=== PATIENT | female | born 1955 | race Two or more races ===

== ENCOUNTER 2024-07-26 12:47 | Outpatient (AMB) | payer OTHER, MEDICAID, SELFPAY ==
--- NOTE | 2024-07-26 12:55 | A.OFFPC_ITS ---
Vital Signs 07/26/24 13:09 Height 5 ft 1.22 in Weight 141 lb BMI 26.4 BP 116/66 Blood Pressure Location Rt brachial Position Sitting Respiration 14 Pulse 96 Pulse Source Pulse Oximeter Pulse Oximetry (%) 96 Oxygen Delivery Method Room Air Intake Visit Reasons: [employer] Diabetes, High BP Intake Note: New patient visit Psych Sales Specialist Required: No Psych Sales Specialist Name: Psych Sales Specialist declined Allergies metformin Adverse Reaction (Verified 07/26/24 13:24) Diarrhea Medication List - Last Reconciled 07/26/24 by Lorna Correa PA-C atorvastatin 80 mg PO DAILY glyburide 5 mg PO BID lisinopril 20 mg PO BID pentoxifylline ER 400 mg PO BID sitagliptin phosphate (Januvia) 100 mg PO DAILY Tobacco use date assessed: 07/26/24 Fall risk assessment: No Falls in past year Last assessed Fall Risk: 07/26/24 Dental Screening Dental Screen Date: 07/26/24 Did you have a dental visit in the last 12 months?: Yes Did you have a dental problem in the last 6 months where you did not have access to dental care?: No Was dental information given to patient?: Patient has dentist HPI [employer] Diabetes, High BP HPI Details Patient is a 69-year-old female presenting today to establish care [place] [facility] She reports a significant past medical history of hypertension, hyperlipidemia type 2 diabetes, pvd, varicose veins. Daughter helps with translation Endo: Last A1c was approximately 11. dx with dm approximately 8-10 years ago around age 60. Currently on glyburide 5 mg bid and januvia 100 mg daily. She does not always check blood sugars. No recent low blood sugars. Last known glucose was 200ish. -stopped metformin due to GI issues. CV: Blood pressure today in the office is on 116/66. SHe is on lisinopril 20 mg bid, pentoxifylline 400 mg bid. compliant with atorvastatin 80 mg nightly. Vasc: followed with Dr. Ramírez Figueroa in Apr for varicose veins. Wears compression stockings regularly but states that sometimes her feet feel a little puffy. It is pretty much in the left foot and gets better when she elevates or lays down. They told her this is related to her varicose veins. Mammo: At [facility] booked next week Pap: UTD 2022, scheduled for November 2024 Bone density: believes due this year and states maybe has osteopenia Colonoscopy: never had, would do cologuard [facility] Surgical History (Updated 07/26/24 @ 13:22 by Paige Harley CMA) Hx of appendectomy Status post phlebectomy Family History (Updated 07/26/24 @ 13:22 by Paige Harley CMA) Father Diabetes Sister Diabetes Breast cancer Brother Diabetes Sister Breast cancer Lung cancer Family/Other Cancer Social History Housing: Apartment Alcohol intake: current Patient Tobacco Use Status: Never used Tobacco e-Cigarette/Vaping Use: Never Used Second Hand Smoke Exposure: No service: No Current occupational status: unemployed Cognitive needs: No Hearing needs: No Vision needs: Yes (glasses) Questionnaire AUDIT C Alcohol Use Questionnaire (AUDIT-C) 1. How often do you have a drink containing alcohol?: Monthly or less (Once year, glass of wine, on holidays) 2. How many drinks containing alcohol do you have on a typical day when you are drinking?: 1 or 2 3. How often do you have six or more drinks on one occasion?: Never Total Score: 1 Physical exam (Primary Care) Const Orientation/consciousness: patient oriented x3 HENMT Ears: hearing grossly normal bilaterally Neck Thyroid: Thyroid normal Lymphatic: no lymphadenopathy noted Resp Auscultation: clear to auscultation bilaterally Cardio Rate: regular rate Rhythm: regular rhythm Heart sounds: S1 normal heart sound present and S2 normal heart sound present GI Inspection: Yes normal to inspection Palpation (GI): Soft to palpation and Other GI palpation findings present (nontender, no cva tenderness) Auscultation: normoactive bowel sounds Rectal Exam - Female: deferred Skin General skin exam: no rashes or lesions noted Neuro General: patient oriented x3, gait normal and no focal motor deficits Coding Level of Care Code New Pt Level 4 (56096) Complex EM visit Add On G2211 Diagnoses Uncontrolled type 2 diabetes mellitus with hyperglycemia E11.65 HTN (hypertension) I10 Hyperlipidemia E78.5 Varicose veins of both lower extremities I83.93 Assessment & Plan Assessment & Plan (1) Uncontrolled type 2 diabetes mellitus with hyperglycemia: Code(s): E11.65 - Type 2 diabetes mellitus with hyperglycemia Category: Medical Plan: Labs ordered today. We did discuss going for diabetic Education but she wants to wait on this. We did review type 1 and type 2 diabetes, pathophysiology of diabetes, com plications associated with poorly controlled diabetes such as kidney disease, infections, amputation risks, [place], CVA etc.. We will follow up in a week to be reassessed. We did discuss possibly switching her medications so GLP 1. (2) HTN (hypertension): Code(s): I10 - Essential (primary) hypertension Category: Medical Plan: WNL. Continue with the lisinopril. (3) Hyperlipidemia: Code(s): E78.5 - Hyperlipidemia, unspecified Category: Medical Plan: lipids and lfts ordered (4) Varicose veins of both lower extremities: Code(s): I83.93 - Asymptomatic varicose veins of bilateral lower extremities Category: Medical Plan: compliant with compression stockings. will get notes from [facility] regarding procedures that were done and the rx pentoxifylline as she denies any issues with circulation. She thinks Dr. Rae was prescribing this and will get records [place] [facility] release filled out today. Orders: Orders C Peptide Today E11.65 - Type 2 diabetes mellitus with hyperglycemia, E78.5 - Hyperlipidemia, unspecified, I10 - Essential (primary) hypertension Hemoglobin A1c Today E11.65 - Type 2 diabetes mellitus with hyperglycemia, E78.5 - Hyperlipidemia, unspecified, I10 - Essential (primary) hypertension B Type Natriuretic Peptide Today E11.65 - Type 2 diabetes mellitus with hyperglycemia, E78.5 - Hyperlipidemia, unspecified, I10 - Essential (primary) hypertension Islet Cell Antibody Scrn/Titer Today E11.65 - Type 2 diabetes mellitus with hyperglycemia, E78.5 - Hyperlipidemia, unspecified, I10 - Essential (primary) hypertension Glutamic acid decarboxylase Ab Today E11.65 - Type 2 diabetes mellitus with hyperglycemia, E78.5 - Hyperlipidemia, unspecified, I10 - Essential (primary) hypertension Comprehensive [place]. Panel Fast Today E11.65 - Type 2 diabetes mellitus with hyperglycemia, E78.5 - Hyperlipidemia, unspecified, I10 - Essential (primary) hypertension Microalbumin, Random (w Creat) Today E11.65 - Type 2 diabetes mellitus with hyperglycemia, E78.5 - Hyperlipidemia, unspecified, I10 - Essential (primary) hypertension Lipid Panel Today E11.65 - Type 2 diabetes mellitus with hyperglycemia, E78.5 - Hyperlipidemia, unspecified, I10 - Essential (primary) hypertension XR DEXA axial skeleton Today M85.80 - Other specified disorders of bone density and structure, unspecified site Referrals Cologuard Test Z12.11 - Encounter for screening for malignant neoplasm of colon Medications: New hydrochlorothiazide 25 mg PO DAILY 90 tabs 0RF
[2024-07-26 13:09] VITALS: BP 116/66; PULSE 96; RESP 14; O2SAT 96; BMI 26.4
== END 2024-07-26 13:41 | disposition home or self-care (01) ==
LOC: HO.HMCFM 12:48
PROVIDERS: PCP Physician Assistant; Visit Provider Physician Assistant
DX: E11.65 Type 2 diabetes mellitus with hyperglycemia (principal); I10 Essential (primary) hypertension; E78.5 Hyperlipidemia, unspecified; I83.93 Asymptomatic varicose veins of bilateral lower extremities

== ENCOUNTER → 2024-07-26 12:47 | Outpatient (BNVA) | payer OTHER, SELFPAY | PROVIDERS: PCP Physician Assistant; Visit Provider Physician Assistant | DX: E11.65 Type 2 diabetes mellitus with hyperglycemia (principal); E78.5 Hyperlipidemia, unspecified; I10 Essential (primary) hypertension; I83.93 Asymptomatic varicose veins of bilateral lower extremities | CPT/HCPCS: 99202 ==

== ENCOUNTER 2024-07-31 07:49 | Outpatient (REF) | payer OTHER, SELFPAY ==
[2024-07-31 11:34] LABS: B Type Natriuretic Peptide < 10 pg/mL (<100)
[2024-07-31 11:38] LABS: Estimated Average Glucose 280 mg/dL; Hemoglobin A1C 371.4241 umol/L; Hemoglobin A1c % 11.4 % (<6.0); Total Hemoglobin (HGBA1C) 3676.1278 umol/L
[2024-07-31 11:43] LABS: Creatinine Urine 117.39 mg/dL; Microalbum/Creatinine Ratio Ur 12.7 ug/mg cr (<30)
[2024-07-31 12:58] LABS: Alanine Aminotransferase 42 U/L (0-31); Albumin Level 4.6 g/dL (3.5-5.0); Anion Gap 15 (12-20); Aspartate Amino Transferase 28 U/L (5-31); Bilirubin Total 0.6 mg/dL (0.0-1.0); Blood Urea Nitrogen 14 mg/dL (9-16); Calcium 10.4 mg/dL (8.4-10.2); Carbon Dioxide 27 mmol/L (22-29); Chloride 102 mmol/L (96-108); Cholesterol 204 mg/dL (<200); Estimated Glomerular Filt Rate > 60; Glucose Fasting 284 mg/dL (60-99); HDL Cholesterol 57 mg/dL (>40); LDL Cholesterol Calculated 127 mg/dL (<100); Sodium 140 mmol/L (135-145); Total Protein 7.7 g/dL (6.5-8.0); Triglycerides 100 mg/dL (<150)
[2024-07-31 13:13] LABS: Alkaline Phosphatase 108 U/L (39-117)
[2024-08-01 04:18] LABS: C Peptide 2.27 ng/mL (0.80-3.85)
[2024-08-03 21:43] LABS: Glutamic acid decarboxylase Ab <5 IU/mL (<5)
[2024-08-07 22:49] LABS: Islet Cell Antibody Screen NEGATIVE (NEGATIVE)
== END 2024-07-31 07:50 | disposition home or self-care (01) ==
LOC: HO.WFDLDS 07:49
PROVIDERS: Visit Provider Physician Assistant
DX: E78.5 Hyperlipidemia, unspecified (principal); I10 Essential (primary) hypertension; E11.65 Type 2 diabetes mellitus with hyperglycemia
CPT/HCPCS: 36415; 80053; 80061; 82043; 82570; 83036; 83880; 84681; 86341

== ENCOUNTER 2024-08-02 11:18 | Outpatient (AMB) | payer OTHER, SELFPAY ==
--- NOTE | 2024-08-02 11:33 | MHC.PC.OV ---
Vital Signs 08/02/24 11:37 Height 5 ft 1.22 in BP 128/72 Blood Pressure Location Rt brachial Position Sitting Respiration 12 Pulse 94 Pulse Source Pulse Oximeter Pulse Oximetry (%) 97 Oxygen Delivery Method Room Air Intake Visit Reasons: meds and bp check Intake Note: Follow up medication and blood pressure Allergies metformin Adverse Reaction (Verified 08/02/24 11:36) Diarrhea Medication List - Last Reconciled 08/02/24 by Lorna Correa PA-C atorvastatin 80 mg PO DAILY hydrochlorothiazide 25 mg PO DAILY lisinopril 20 mg PO BID pentoxifylline ER 400 mg PO BID Tobacco use date assessed: 08/02/24 Dental Screening Dental Screen Date: 07/26/24 HPI meds and bp check HPI Details Patient is a 69-year-old female presenting today to [facility] care transferring from [facility]. She reports a significant past medical history of hypertension, hyperlipidemia type 2 diabetes, pvd, varicose veins. Daughter helps with translation Endo: Her A1c from the other day was 11.4. C-peptide WNL. Antibodies pending. dx with dm approximately 8-10 years ago around age 60. Currently on glyburide 5 mg bid and januvia 100 mg daily. She does not always check blood sugars. No recent low blood sugars. Last known glucose was 200ish. -stopped metformin due to GI issues. She says that she does not tolerate any dosage of the metformin. CV: Blood pressure today in the office is on is 128/72. She is on lisinopril 20 mg bid, hydrochlorothiazide 25 mg daily, pentoxifylline 400 mg bid. compliant with atorvastatin 80 mg nightly. No chest pain, shortness on breath or dizziness. Vasc: followed with Dr. Ramírez Figueroa in Apr for varicose veins. Wears compression stockings regularly but states that sometimes her feet feel a little puffy. It is pretty much in the left foot and gets better when she elevates or lays down. They told her this is related to her varicose veins. Mammo: Completed at [facility] 07/2024 and states normal Pap: UTD 2022, scheduled for November 2024 Bone density: believes due this year and states maybe has osteopenia Colonoscopy: never had, would do cologuard-ordered at last visit [facility] Surgical History Hx of appendectomy Status post phlebectomy Family History Father Diabetes Sister Diabetes Breast cancer Brother Diabetes Sister Breast cancer Lung cancer Family/Other Cancer Social History (Updated 08/02/24 @ 11:50 by Paige Harley CMA) Housing: Apartment Alcohol intake: current Patient Tobacco Use Status: Never used Tobacco e-Cigarette/Vaping Use: Never Used Second Hand Smoke Exposure: No service: No Current occupational status: unemployed Cognitive needs: No Hearing needs: No Vision needs: Yes (glasses) Physical exam (Primary Care) Vital Signs: Last Vital Signs Pulse 94 08/02/24 11:37 Resp 12 08/02/24 11:37 BP 128/72 08/02/24 11:37 Pulse Ox 97 08/02/24 11:37 Oxygen Delivery Method Room Air 08/02/24 11:37 Tobacco/Smoking Status: Tobacco use Status Tobacco use date assessed 08/02/24 08/02/24 11:37 Patient Tobacco Use Status Never used Tobacco 08/02/24 11:50 e-Cigarette/Vaping Use Never Used 08/02/24 11:50 Const Orientation/consciousness: patient oriented x3 HENMT Ears: hearing grossly normal bilaterally Neck Thyroid: Thyroid normal Lymphatic: no lymphadenopathy noted Resp Auscultation: clear to auscultation bilaterally Cardio Rate: regular rate Rhythm: regular rhythm Heart sounds: S1 normal heart sound present and S2 normal heart sound present GI Inspection: Yes normal to inspection Palpation (GI): Soft to palpation and Other GI palpation findings present (nontender, no cva tenderness) Auscultation: normoactive bowel sounds Rectal Exam - Female: deferred Skin General skin exam: no rashes or lesions noted Neuro General: patient oriented x3, gait normal and no focal motor deficits Results Reviewed Results Reviewed: Laboratory Tests 07/31/24 07:51 Sodium 140 Potassium 4.0 Chloride 102 Carbon Dioxide 27 Anion Gap 15 BUN 14 Creatinine 0.85 Estimated GFR > 60 Fasting Glucose 284 H Hemoglobin A1c % 11.4 H C-Peptide 2.27 Calcium 10.4 H AST 28 ALT 42 H Alkaline Phosphatase 108 B-Natriuretic Peptide < 10 Coding Level of Care Code Est Pt Level 5 (16813) Complex EM visit Add On G2211 Diagnoses Uncontrolled type 2 diabetes mellitus with hyperglycemia E11.65 Elevated LFTs R79.89 Hyperlipidemia E78.5 Assessment & Plan Assessment & Plan (1) Uncontrolled type 2 diabetes mellitus with hyperglycemia: Code(s): E11.65 - Type 2 diabetes mellitus with hyperglycemia Category: Medical Plan: We reviewed how poorly the diabetes is controlled. Spent approximately 65 minutes in [id number] time today reviewing diabetes, the pathophysiology of diabetes, the differences between type 1 and type 2 and the complications associated with poorly controlled type 2 diabetes including but not limited to increased risk of blindness, amputations, dialysis, CA, CVA etc.. She refuses to wear a CGM at this point. I have referred her to the endocrine department so she may have more Education and see a CGM and hopefully have better control of diabetes. Insurance prefers glipizide. We will switch from glyburide to glipizide. I will discontinue Januvia After a very long discussion she is open to starting Lantus. We will start with 10 units. She will start Trulicity this weekend. We reviewed risks, benefits and adverse effects of this medication. We reviewed signs and symptoms of hyper and hypoglycemia and how to treat this. Advised short term follow up in a few weeks to be reassessed. (2) Elevated LFTs: Code(s): R79.89 - Other specified abnormal findings of blood chemistry Category: Medical Plan: Discussed the importance of managing diabetes Ultrasound ordered. We will monitor labs. (3) Hyperlipidemia: Code(s): E78.5 - Hyperlipidemia, unspecified Category: Medical Plan: Discussed that her LDL is not quite at goal. She is going to work on making some lifestyle modifications. Orders: Orders Parathyroid Hormone Intact 08/02/24 E78.5 - Hyperlipidemia, unspecified, R79.89 - Other specified abnormal findings of blood chemistry Vitamin D 25-OH Total 08/02/24 E78.5 - Hyperlipidemia, unspecified, R79.89 - Other specified abnormal findings of blood chemistry Calcium, Ionized 08/02/24 E78.5 - Hyperlipidemia, unspecified, E83.52 - Hypercalcemia, R79.89 - Other specified abnormal findings of blood chemistry US abdomen comp w elastography 08/02/24 R79.89 - Other specified abnormal findings of blood chemistry Liver Panel 08/02/24 E78.5 - Hyperlipidemia, unspecified, R79.89 - Other specified abnormal findings of blood chemistry Basic Metabolic Panel 08/02/24 E78.5 - Hyperlipidemia, unspecified, R79.89 - Other specified abnormal findings of blood chemistry Referrals Endocrinology Referral E11.65 - Type 2 diabetes mellitus with hyperglycemia Medications: New dulaglutide (Trulicity) 0.75 mg (0.5 mL) subcut QWEEK 2 mL 3RF pen needle, diabetic Use BID As directed 100 ea 3RF pentoxifylline ER must administer with a meal/food 400 mg PO BID 180 tabs 1RF glipizide 5 mg PO BID 180 tabs 0RF insulin glargine (Lantus Solostar U-100 Insulin) 10 units (0.1 mL) subcut QPM 15 mL 3RF Patient Instructions: stop glyburide start glipizide 5 mg twice a day stop januvia start trulicity 0.75 mg once a week injection start lantus (insulin) tonight or tomorrow complete labs before our next appointment short term follow up
[2024-08-02 11:37] VITALS: BP 128/72; PULSE 94; RESP 12; O2SAT 97
== END 2024-08-02 12:38 | disposition home or self-care (01) ==
LOC: HO.HMCFM 11:18
PROVIDERS: PCP Physician Assistant; Visit Provider Physician Assistant
DX: E11.65 Type 2 diabetes mellitus with hyperglycemia (principal); R79.89 Other specified abnormal findings of blood chemistry; E78.5 Hyperlipidemia, unspecified

== ENCOUNTER → 2024-08-02 11:18 | Outpatient (BNVA) | payer OTHER, SELFPAY | PROVIDERS: PCP Physician Assistant; Visit Provider Physician Assistant | DX: I10 Essential (primary) hypertension (principal); E78.5 Hyperlipidemia, unspecified; E11.51 Type 2 diabetes mellitus with diabetic peripheral angiopathy without gangrene; E11.65 Type 2 diabetes mellitus with hyperglycemia; I83.90 Asymptomatic varicose veins of unspecified lower extremity; R79.89 Other specified abnormal findings of blood chemistry | CPT/HCPCS: 99212 ==

== ENCOUNTER → 2024-08-16 08:45 | Outpatient (BNVA) | payer OTHER, SELFPAY | PROVIDERS: PCP Physician Assistant; Visit Provider Physician Assistant | DX: Z13.89 Encounter for screening for other disorder (principal) ==

== ENCOUNTER 2024-08-29 07:44 | Outpatient (REF) | payer OTHER, SELFPAY ==
--- OUTSIDE RECORDS SUMMARY | 2024-08-29 07:46 | XMS_ITS | Continuity of Care Document ---
Author Organization [facility] Address [address] [place] [address] Phone Care Team Providers Care Group Controller Name Role Phone Henry RIZZO, MITCH, LINDSAY, [...] Established 15 Mins Apr Duplex Scan-extrem Veins; [facility]/ Advance Directives Directive Yes / No Effective [...] Mins- [place] & [place] [facility], [address] [place] [address] Dr Lozoya [address] [place], [place] [address], [id number], [place] tel:[phone] [facility] Type 2 diabetes mellitus without complicationsE ssential (primary) hypertensionVe nous insufficiency (chronic) (peripheral)Di sorder of pigmentation, unspecified 5 Henry RIZZO, MITCH, LINDSAY Elmore. [address] [place] [address], [id number] , [place]. tel:[phone] Referring Provider: Macy Rae MD, [address] [place] [address], [address]. tel:[phone] [place] [facility], [address] [place] [address] Dr Lozoya [address] [place] [address], [id number], [place] tel:[phone] [facility] Chronic venous hypertension (idiopathic) with other complications of left lower extremity 5 Henry RIZZO RVT, LINDSAY Elmore. [address] [place] [address], [place], [place], [id number] , [place]. tel:[phone] Referring Provider: Macy Rae MD, [address] [place] [address], [address]. tel:[phone] [facility], [address] [place] [address] Dr Lozoya [address] [place], [id number], [place] tel:[phone] [facility] Encounter for follow-up examination after completed treatment for conditions other than malignant neoplasmChroni c venous hypertension (idiopathic) with other complications of left lower extremity 5 Henry RIZZO RVT, LINDSAY Elmore. [address] [place] [address], [place], [place], [id number] , [place]. tel:[phone] Referring Provider: Macy Rae MD, [address] [place] [address], [address]. tel:[phone] [place] [facility], [address] [place] [address] Dr Lozoya [address] l[place], [id number], [place] tel:[phone] [facility] Varicose veins of left lower extremity with other complications 5 Maame Mosquera . [address] [place] [address], [place], [place], [id number] , [place]. tel:[phone] Referring Provider: Macy Rae MD, [address] [place] [address], [address]. tel:[phone] Office/Outpt E&M Established 15 Mins- CT & [facility], [address] [place] [address] Dr Lozoya [address] l[place], [id number], [place] tel:[phone] [facility] Hereditary lymphedemaType 2 diabetes mellitus without complicationsE ssential (primary) hypertensionLo calized edemaVaricose veins of left lower extremity with painLymphedema , not elsewhere classified 4 Henry RIZZO RVT, LINDSAY Elmore. [address] [place] [address], [place], [place], [id number] , [place]. tel:[phone] Referring Provider: Macy Rae MD, [address] [place] [address], [address]. tel:[phone] [place] [facility], [address] [place] [address] Dr [address], [id number], [place] tel:[phone] [facility] Chronic venous hypertension (idiopathic) with other complications of left lower extremity 4 Henry RIZZO, RVT, LINDSAY Elmore. [address] [place] [address], [place], [place], [id number] , [place]. tel:[phone] Referring Provider: Macy Rae MD, [address] [place] [address], [address]. tel:[phone] Office/Outpt E&M Established 15 Mins [facility], [address] [place] [address] Dr Lozoya [address] [address], [id number], [place] tel:[phone] [facility] Chronic venous htn w oth comp of bilateral low extrm 3 Tarik RIZZO FACS RVT LINDSAY Saldivar. [address] [place] [address], [place], [address], [place]. tel:[phone] Referring Provider: Macy Rae MD, [address] [place] [address], [address]. tel:[phone] [facility], [address] [place] [address] Dr Lozoya [address] [address], [id number], [place] tel:[phone] [facility] Encntr for f/u exam aft trtmt for cond oth than malig neoplmChronic venous hypertension w oth comp of l low extrem 3 Tarik RIZZO FACS RVT LINDSAY Saldivar. [address] [place] [address], [place], [address], [place]. tel:[phone] Referring Provider: Macy Rae MD, [address] [place] [address], [address]. tel:[phone] [facility], [address] [place] [address] Dr Lozoya [address], [id number], [place] tel:[phone] [facility] Spider Veins - (Telangiectasi a) 3 Maame Mosquera . [address] [place] [address], [facility], [place], [id number] , [place]. tel:[phone] Referring Provider: Macy Rae MD, [address] [place] [address], [address]. tel:[phone] [facility], [address] [place] [address] Dr Lozoya [address] [place], [id number], [place] tel:[phone] [facility] Varicose veins of left lower extremities w ot complications Sep- 3 Tarik RIZZO FACS T RPVI K Yariel. [address] [place] [address], [place], [address], [place]. tel:[phone] Referring Provider: Macy Rae MD, [address] [place] [address], [address]. tel:[phone] [place] [facility], [address] [place] [address] Dr Lozoya [address] [place], [id number], [place] tel:[phone] [facility] Varicose veins of left lower extremities w ot complications 3 Tarik RIZZO FACS T RPVI K Yariel. [address] [place] [address], [place], [address], [place]. tel:[phone] Referring Provider: Macy Rae MD, [address] [place] [address], [address]. tel:[phone] [place] [facility], [address] [place] [address] Dr Lozoya [address], [id number], [place] tel:[phone] [facility] No Information 3 Tarik RIZZO FACS RVT RPVI K Yariel. [address] [place] [address], [place], [address], [place]. tel:[phone] Referring Provider: Macy Rae MD, [address] [place] [address], [address]. tel:[phone] Offic/outpt E&m Estab 5 Min Trial - [facility], [address] [place] [address] Dr Lozoya [address], [id number], [place] tel:[phone] [facility] [place] Venous insufficiency (chronic) (peripheral) 3 Tarik Saldiavr. [address] [place] [address], [place], [address], . tel:[phone] Referring Provider: Macy Rae MD, [address] [place] [address], [address]. tel:[phone] Office/Outpt E&M Established 15 Mins [facility], [address] [place] [address] Dr Lozoya [address], [place], [id number], tel:[phone] [facility] [place] [facility] [place] Body mass index (BMI) 25.0-25.9, adultVenous insufficiency (chronic) (peripheral) 3 Tarik Saldivar. [address] [place] [address], [place], [address], [place]. tel:[phone] Referring Provider: Macy Rae MD, [address] [place] [address], [address]. tel:[phone] [place] [facility], [address] [place] [address] [facility] [address], [id number], [place] tel:[phone] [facility] [place] Venous insufficiency (chronic) (peripheral) 3 Tarik Saldivar. [address] [place] [address], [place], [address], [place]. tel:[phone] Referring Provider: Macy Rae MD, [address] [place] [address], [address]. tel:[phone] Family History Family Member Type Diagnosis Age At Onset No Information Payers Payer name Insurance type Covered alliance party ID Husam russell(s) [facility] CI [id number] Social History Type Description Quantity Date Captured [...] No Information Instructions Date Instruction Additional Infor mation Pre and post instruc tions reviewed and provided Related to Venous insufficiency (chronic) (peripheral) Lifestyle education Related to B chata mass index (BMI) 26.0-26.9, adult Giving Encouragement to exercise Related to Body mass index (BMI) 26.0-26.9, adult Diet education Related to Body mass index (BMI) 26.0-26.9, adult Pre and post instruc tions reviewed and provided Related to Localized edema Lifestyle education Related to B chata mass index (BMI) 26.0-26.9, adult Giving Encouragement to exercise Related to Body mass index (BMI) 26.0-26.9, adult Diet education Related to Body mass index (BMI) 26.0-26.9, adult Dietary management e ducation, guidance, and counseling Related to Body mass index [BMI] 25.0-25.9, adult Assessments Type Assessment Date No Information Patient Care Teams Name Effective Dates (start - stop) Status Members No Information
[2024-08-29 12:06] LABS: Parathyroid Hormone Intact 57.5 pg/mL (8.7-77.1)
[2024-08-29 14:46] LABS: Alanine Aminotransferase 66 U/L (0-31); Albumin Level 4.5 g/dL (3.5-5.0); Anion Gap 12 (12-20); Aspartate Amino Transferase 39 U/L (5-31); Bilirubin Direct 0.1 mg/dL (0.0-0.5); Bilirubin Total 0.4 mg/dL (0.0-1.0); Blood Urea Nitrogen 11 mg/dL (9-16); Carbon Dioxide 29 mmol/L (22-29); Chloride 107 mmol/L (96-108); Estimated Glomerular Filt Rate > 60; Glucose Random 129 mg/dL (60-115); Potassium 4.4 mmol/L (3.3-5.1); Sodium 144 mmol/L (135-145); Total Protein 7.4 g/dL (6.5-8.0)
[2024-08-29 15:24] LABS: Vitamin D 25-OH Total 121.7 ng/mL (>30)
[2024-08-29 18:21] LABS: Alkaline Phosphatase 83 U/L (39-117)
[2024-08-30 15:18] LABS: Calcium, Ionized 5.5 mg/dL (4.7-5.5)
== END 2024-08-29 07:45 | disposition home or self-care (01) ==
LOC: HO.WFDLDS 07:44
PROVIDERS: Visit Provider Physician Assistant
DX: E78.5 Hyperlipidemia, unspecified (principal); E83.52 Hypercalcemia; R79.89 Other specified abnormal findings of blood chemistry
CPT/HCPCS: 36415; 80048; 80076; 82306; 82330; 83970

== ENCOUNTER 2024-08-31 13:33 | Outpatient (AMB) | payer OTHER, SELFPAY ==
--- NOTE | 2024-08-31 13:39 | A.OFFPC_ITS ---
Vital Signs 08/31/24 13:44 Height 5 ft 1.22 in Weight 139 lb 4 oz BMI 26.1 BP 110/60 Blood Pressure Location Rt brachial Position Sitting Respiration 12 Pulse 80 Pulse Source Pulse Oximeter Pulse Oximetry (%) 94 Oxygen Delivery Method Room Air Intake Visit Reasons: dm and labs Intake Note: Diabetes follow up, lab results. Need OneTouch Ultra test strips and Trulicity refilled. Build And Deployment Engineer Required: No Build And Deployment Engineer Name: mosaicist declined Accompanied by: Daughter Allergies metformin Adverse Reaction (Verified 08/31/24 13:49) Diarrhea Medication List - Last Reconciled 08/31/24 by Lorna Correa PA-C atorvastatin 80 mg PO DAILY blood sugar diagnostic (OneTouch Ultra Test strips) As directed dulaglutide (Trulicity) 0.75 mg (0.5 mL) subcut QWEEK glipizide 5 mg PO BID hydrochlorothiazide 25 mg PO DAILY insulin glargine (Lantus Solostar U-100 Insulin) 10 units (0.1 mL) subcut QPM lisinopril 20 mg PO BID pen needle, diabetic Use BID As directed pentoxifylline ER 400 mg PO BID Tobacco use date assessed: 08/31/24 Fall risk assessment: No Falls in past year Last assessed Fall Risk: 08/31/24 Dental Screening Dental Screen Date: 07/26/24 HPI dm and labs HPI Details Patient is a 69-year-old female presenting today for a follow up. She reports a significant past medical history of hypertension, hyperlipidemia type 2 diabetes, pvd, varicose veins. Daughter helps with translation Endo: Her A1c from the other day was 11.4. C-peptide WNL. Antibodies neg. dx with dm approximately 8-10 years ago around age 60. Currently on glyburide 5 mg bid and at last visit started on Trulicity 0.75 mg weekly and 10 units of Lantus daily. She states her blood sugars recently have been very normal around 90-100. On days where the blood sugars were on 90 she would hold off on the insulin. Denies any hypoglycemic events. -stopped metformin due to GI issues. Sh umm says that she does not tolerate any do emmett of the metformin. CV: Blood pressure today in the office is on is 128/72. She is on lisinopril 20 mg bid, hydrochlorothiazide 25 mg daily, pentoxifylline 400 mg bid. compliant with atorvastatin 80 mg nightly. No chest pain, shortness on breath or dizziness. Vasc: followed with Dr. Ramírez Figueroa in Apr for varicose veins. Wears compression stockings regularly. Mammo: Completed at [facility] 07/2024 and states normal Pap: UTD 2022, scheduled for November 2024 Bone density: believes due this year and states maybe has osteopenia-this was ordered Colonoscopy: never had, would do cologuard-ordered at last visit [facility] Surgical History Hx of appendectomy Status post phlebectomy Family History Father Diabetes Sister Diabetes Breast cancer Brother Diabetes Sister Breast cancer Lung cancer Family/Other Cancer Social History (Updated 08/02/24 @ 11:50 by Paige Harley CMA) Housing: Apartment Alcohol intake: current Patient Tobacco Use Status: Never used Tobacco e-Cigarette/Vaping Use: Never Used Second Hand Smoke Exposure: No service: No Current occupational status: unemployed Cognitive needs: No Hearing needs: No Vision needs: Yes (glasses) Physical exam (Primary Care) Vital Signs: Last Vital Signs Pulse 80 08/31/24 13:44 Resp 12 08/31/24 13:44 BP 110/60 08/31/24 13:44 Pulse Ox 94 08/31/24 13:44 Oxygen Delivery Method Room Air 08/31/24 13:44 BMI result Body Mass Index 26.1 Tobacco/Smoking Status: Tobacco use Status Tobacco use date assessed 08/31/24 08/31/24 13:43 Patient Tobacco Use Status Never used Tobacco 08/31/24 13:39 e-Cigarette/Vaping Use Never Used 08/31/24 13:39 Const Orientation/consciousness: patient oriented x3 HENMT Ears: hearing grossly normal bilaterally Neck Thyroid: Thyroid normal Lymphatic: no lymphadenopathy noted Resp Auscultation: clear to auscultation bilaterally Cardio Rate: regular rate Rhythm: regular rhythm Heart sounds: S1 normal heart sound present and S2 normal heart sound present GI Inspection: Yes normal to inspection Palpation (GI): Soft to palpation and Other GI palpation findings present (nontender, no cva tenderness) Auscultation: normoactive bowel sounds Rectal Exam - Female: deferred Skin General skin exam: no rashes or lesions noted Neuro General: patient oriented x3, gait normal and no focal motor deficits Coding Level of Care Code Est Pt Level 4 (29894) Complex EM visit Add On G2211 Diagnoses Uncontrolled type 2 diabetes mellitus with hyperglycemia E11.65 Hyperlipidemia E78.5 Elevated LFTs R7. Assessment & Plan Assessment & Plan (1) Uncontrolled type 2 diabetes mellitus with hyperglycemia: Code(s): E11.65 - Type 2 diabetes mellitus with hyperglycemia Category: Medical Plan: stop insulin increase trulicity to 1.5 mg weekly reduce glipizide to 5 mg daily (2) Hyperlipidemia: Code(s): E78.5 - Hyperlipidemia, unspecified Category: Medical Plan: continue statin will monitor lfts u/s ordered (3) Elevated LFTs: Code(s): R79. - Other specified abnormal findings of blood chemistry Category: Medical Plan: labs ordered u/s pending does not use tylenol or drink etoh has been on atorvastatin for at least 5 years Orders: Orders Hepatitis A IgG Today E11.65 - Type 2 diabetes mellitus with hyperglycemia, E78.5 - Hyperlipidemia, unspecified, R94.5 - Abnormal results of liver function studies Gamma Glutamyl Transpeptidase Today E11.65 - Type 2 diabetes mellitus with hyperglycemia, E78.5 - Hyperlipidemia, unspecified, R94.5 - Abnormal results of liver function studies Ferritin Today E11.65 - Type 2 diabetes mellitus with hyperglycemia, E78.5 - Hyperlipidemia, unspecified, R94.5 - Abnormal results of liver function studies IRON PROFILE Today E11.65 - Type 2 diabetes mellitus with hyperglycemia, E78.5 - Hyperlipidemia, unspecified, R94.5 - Abnormal results of liver function studies Liver Panel Today E11.65 - Type 2 diabetes mellitus with hyperglycemia, E78.5 - Hyperlipidemia, unspecified, R94.5 - Abnormal results of liver function studies Hepatitis A IgM Today E11.65 - Type 2 diabetes mellitus with hyperglycemia, E78.5 - Hyperlipidemia, unspecified, R94.5 - Abnormal results of liver function studies Hepatitis C Antibody Today E11.65 - Type 2 diabetes mellitus with hyperglycemia , E78.5 - Hyperlipidemia, unspecified, R94.5 - Abnormal results of liver function studies, Z20.2 - Contact with and (suspected) exposure to infections with a predominantly sexual mode of transmission Complete Blood Count Auto Diff Today R79.89 - Other specified abnormal findings of blood chemistry Medications: New dulaglutide (Trulicity) 1.5 mg (0.5 mL) subcut QWEEK 2 mL 3RF glipizide ER 5 mg PO DAILY 90 tabs 1RF Discontinued dulaglutide (Trulicity) Discontinued Reason: Doctor's Order 0.75 mg (0.5 mL) subcut QWEEK 2 mL 3RF glipizide Discontinued Reason: Doctor's Order 5 mg PO BID 180 tabs 0RF insulin glargine (Lantus Solostar U-100 Insulin) Discontinued Reason: Doctor's Order 10 units (0.1 mL) subcut QPM 15 mL 3RF
[2024-08-31 13:44] VITALS: BP 110/60; PULSE 80; RESP 12; O2SAT 94; BMI 26.1
--- OUTSIDE RECORDS SUMMARY | 2024-08-31 14:36 | XMS_ITS | Continuity of Care Document ---
Author Organization [facility] Address [address] [place] [address] Phone Care Team Providers Care Weekend Anchor Name Role Phone Henry RIZZO, MITCH, LINDSAY, [...] Established 15 Mins Apr Duplex Scan-extrem Veins; [facility]/ Advance Directives Directive Yes / No Effective [...] Mins- [place] & [place] [facility], [address] [place] [address] Dr [address] [place], [place] [address], [id number], [place] tel:[phone] [facility] Type 2 diabetes mellitus without complicationsE ssential (primary) hypertensionVe nous insufficiency (chronic) (peripheral)Di sorder of pigmentation, unspecified 5 Henry RIZZO, MITCH, LINDSAY Elmore. [address] [place] [address], [id number] , [place]. tel:[phone] Referring Provider: Macy Rae MD, [address] [place] [address], [address]. tel:[phone] [place] [facility], [address] [place] [address] Dr Lozoya [address] [address], [id number], [place] tel:[phone] [facility] Chronic venous hypertension (idiopathic) with other complications of left lower extremity 5 Henry RIZZO RVT, LINDSAY Elmore. [address] [place] [address], [place], [place], [id number] , [place]. tel:[phone] Referring Provider: Macy Rae MD, [address] [place] [address], [address]. tel:[phone] [facility], [address] [place] [address] Dr Lozoya 1000Suite [place], [id number], [place] tel:[phone] CVR - [facility] Encounter for follow-up examination after completed treatment for conditions other than malignant neoplasmChroni c venous hypertension (idiopathic) with other complications of left lower extremity 5 Henry RIZZO RVT, LINDSAY Elmore. [address] [place] [address], [place], [place], [id number] , [place]. tel:[phone] Referring Provider: Macy Rae MD, [address] [place] [address], [address]. tel:[phone] [place] [facility], [address] [place] [address] Dr Lozoya [address]Su[place] lópez MD, [id number], [place] tel:[phone] [facility] Varicose veins of left lower extremity with other complications 5 Maame Mosquera . [address] [place] [address], [place], [place], [id number] , [place]. tel:[phone] Referring Provider: Macy Rae MD, [address] [place] [address], [address]. tel:[phone] Office/Outpt E&M Established 15 Mins- CT & [facility], [address] [place] [address] Dr Lozoya [address]Su[place] lópez MD, [id number], [place] tel:[phone] R [facility] Hereditary lymphedemaType 2 diabetes mellitus without complicationsE ssential (primary) hypertensionLo calized edemaVaricose veins of left lower extremity with painLymphedema , not elsewhere classified 4 Henry RIZZO RVT, LINDSAY Elmore. [address] [place] [address], [place], [place], [id number] , [place]. tel:[phone] Referring Provider: Macy Rae MD, [address] [place] [address], [address]. tel:[phone] [place] [facility], [address] [place] [address] Dr [address], [id number], [place] tel:[phone] CVR - [facility] Chronic venous hypertension (idiopathic) with other complications of left lower extremity 4 Henry RIZZO, RVT, LINDSAY Elmore. [address] [place] [address], [place], [place], [id number] , [place]. tel:[phone] Referring Provider: Macy Rae MD, [address] [place] [address], [address]. tel:[phone] Office/Outpt E&M Established 15 Mins [facility], [address] [place] [address] Dr Lozoya [facility] [address], [id number], [place] tel:[phone] CVR - [facility] Chronic venous htn w oth comp of bilateral low extrm 3 Tarik RIZZO FACS RVT LINDSAY Saldivar. [address] [place] [address], [place], [address], [place]. tel:[phone] Referring Provider: Macy Rae MD, [address] [place] [address], [address]. tel:[phone] [place] [facility], [address] [place] [address] Dr Lozoya [facility] [address], [id number], [place] tel:[phone] CVR - [facility] Encntr for f/u exam aft trtmt for cond oth than malig neoplmChronic venous hypertension w oth comp of l low extrem 3 Tarik RIZZO FACS RVT LINDSAY Saldivar. [address] [place] [address], [place], [address], [place]. tel:[phone] Referring Provider: Macy Rae MD, [address] [place] [address], [address]. tel:[phone] [place], [address] [place] [address] Dr Lozoya [address], [id number], [place] tel:[phone] CVR - [facility] Spider Veins - (Telangiectasi a) 3 Maame Mosquera . [address] [place] [address], [facility], [place], [id number] , [place]. tel:[phone] Referring Provider: Macy Rae MD, [address] [place] [address], [address]. tel:[phone] [place], [address] [place] [address] Dr Lozoya [address]Suite [place], [id number], [place] tel:[phone] CVR - [facility] Varicose veins of left lower extremities w ot complications Sep- 3 Tarik RIZZO FACS T RPVI K Yariel. [address] [place] [address], [place], [address], [place]. tel:[phone] Referring Provider: Macy Rae MD, [address] [place] [address], [address]. tel:[phone] [place] [facility], [address] [place] [address] Dr Lozoya [address]Suite [place], [id number], [place] tel:[phone] CVR - [facility] Varicose veins of left lower extremities w ot complications 3 Tarik RIZZO FACS T RPVI K Yariel. [address] [place] [address], [place], [address], [place]. tel:[phone] Referring Provider: Macy Rae MD, [address] [place] [address], [address]. tel:[phone] [place] [facility], [address] [place] [address] Dr Lozoya [address] 1000[place], [id number], [place] tel:[phone] CVR - [facility] No Information 3 Tarik RIZZO FACS RVT RPVI K Yariel. [address] [place] [address], [place], [address], [place]. tel:[phone] Referring Provider: Macy Rae MD, [address] [place] [address], [address]. tel:[phone] Offic/outpt E&m Estab 5 Min Trial - Telemedicine [facility], [address] [place] [address] Dr Lozoya [address] 1000[place], [id number], [place] tel:[phone] CVR - [facility] [place] Venous insufficiency (chronic) (peripheral) 3 Tarik Saldivar. [address] [place] [address], [place], [address], . tel:[phone] Referring Provider: Macy Rae MD, [address] [place] [address], [address]. tel:[phone] Office/Outpt E&M Established 15 Mins [facility], [address] [place] [address] Dr Lozoya [address], [place], [id number], tel:[phone] CV[place] - [place] - [place] Body mass index (BMI) 25.0-25.9, adultVenous insufficiency (chronic) (peripheral) 3 Tarik Saldivar. [address] [place] [address], [place], [address], [place]. tel:[phone] Referring Provider: Macy Rae MD, [address] [place] [address], [address]. tel:[phone] [place] [facility], [address] [place] [address] [facility] [address] 1000[place], [id number], [place] tel:[phone] CVR - [facility] [place] Venous insufficiency (chronic) (peripheral) 3 Tarik Saldivar. [address] [place] [address], [place], [address], [place]. tel:[phone] Referring Provider: Macy Rae MD, [address] [place] [address], [address]. tel:[phone] Family History Family Member Type Diagnosis Age At Onset No Information Payers Payer name Insurance type Covered alliance party ID Husam russell(s) [facility] CI [id number] Social History Type Description Quantity Date Captured [...] Information Instructions Date Instruction Additional Infor leighaion Diet education Related to Body mass index (BMI) 26.0-26.9, adult Giving Encouragement to exercise Related to Body mass index (BMI) 26.0-26.9, adult Lifestyle education Related to B chata mass index (BMI) 26.0-26.9, adult Pre and post instruc tions reviewed and provided Related to Venous insufficiency (chronic) (peripheral) Diet education Related to Body mass index [...]
== END 2024-08-31 14:20 | disposition home or self-care (01) ==
LOC: HO.HMCFM 13:34
PROVIDERS: PCP Physician Assistant; Visit Provider Physician Assistant
DX: E11.65 Type 2 diabetes mellitus with hyperglycemia (principal); E78.5 Hyperlipidemia, unspecified; R79.89 Other specified abnormal findings of blood chemistry

== ENCOUNTER → 2024-08-31 13:33 | Outpatient (BNVA) | payer OTHER, SELFPAY | PROVIDERS: PCP Physician Assistant; Visit Provider Physician Assistant | DX: Z13.89 Encounter for screening for other disorder (principal) | CPT/HCPCS: 99212 ==

== ENCOUNTER 2024-08-31 14:30 | Outpatient (REF) | payer OTHER, SELFPAY ==
--- OUTSIDE RECORDS SUMMARY | 2024-08-31 15:16 | XMS_ITS | Continuity of Care Document ---
Author Organization [facility] Address [address] [place] [address] Phone Care Team Providers Care Agile Project Manager Name Role Phone Henry RIZZO, MITCH, LINDSAY, [...] Established 15 Mins Apr Duplex Scan-extrem Veins; [facility]/ Advance Directives Directive Yes / No [...] Mins- [place] & [place] [facility], [address] [place] [address] Dr [address] [place], [place] [address], [id number], [place] tel:[phone] [facility] Type 2 diabetes mellitus without complicationsE ssential (primary) hypertensionVe nous insufficiency (chronic) (peripheral)Di sorder of pigmentation, unspecified 5 Henry RIZZO, MITCH, LINDSAY Elmore. [address] [place] [address], [id number] , [place]. tel:[phone] Referring Provider: Macy Rae MD, [address] [place] [address], [address]. tel:[phone] [place] [facility], [address] [place] [address] Dr Lozoya [address] [address], [id number], [place] tel:[phone] [facility] Chronic venous hypertension (idiopathic) with other complications of left lower extremity 5 Henry RIZZO RVT, LINDSAY Elmore. [address] [place] [address], [place], [place], [id number] , [place]. tel:[phone] Referring Provider: Macy Rae MD, [address] [place] [address], [address]. tel:[phone] [facility], [address] [place] [address] Dr Lozoya [address]Suite [place], [id number], [place] tel:[phone] CVR - [facility] Encounter for follow-up examination after completed treatment for conditions other than malignant neoplasmChroni c venous hypertension (idiopathic) with other complications of left lower extremity 5 Henry RIZZO RVT, LINDSAY Elmore. [address] [place] [address], [place], [place], [id number] , [place]. tel:[phone] Referring Provider: Macy Rae MD, [address] [place] [address], [address]. tel:[phone] [place] [facility], [address] [place] [address] Dr Lozoya 1000SuCamden lópez MD, [id number], [place] tel:[phone] [facility] Varicose veins of left lower extremity with other complications 5 Maame Mosquera . [address] [place] [address], [place], [place], [id number] , [place]. tel:[phone] Referring Provider: Macy Rae MD, [address] [place] [address], [address]. tel:[phone] Office/Outpt E&M Established 15 Mins- CT & [facility], [address] [place] [address] Dr Lozoya 1000SuCam[place] lópez MD, [id number], [place] tel:[phone] R [facility] Hereditary lymphedemaType 2 diabetes mellitus without complicationsE ssential (primary) hypertensionLo calized edemaVaricose veins of left lower extremity with painLymphedema , not elsewhere classified 4 Henry RIZZO RVT, LINDSAY Elmore. [address] [place] [address], [place], [place], [id number] , [place]. tel:[phone] Referring Provider: Macy Rae MD, [address] [place] [address], [address]. tel:[phone] [place] [facility], [address] [place] [address] Dr [address] 1000[place], [id number], [place] tel:[phone] CVR - [facility] Chronic venous hypertension (idiopathic) with other complications of left lower extremity 4 Henry RIZZO, RVT, LINDSAY Elmore. [address] [place] [address], [place], [place], [id number] , [place]. tel:[phone] Referring Provider: Macy Rae MD, [address] [place] [address], [address]. tel:[phone] Office/Outpt E&M Established 15 Mins [facility], [address] [place] [address] Dr Lozoya 1000[facility] [address], [id number], [place] tel:[phone] CVR - [facility] Chronic venous htn w oth comp of bilateral low extrm 3 Tarik RIZZO FACS RVT LINDSAY Saldivar. [address] [place] [address], [place], [address], [place]. tel:[phone] Referring Provider: Macy Rae MD, [address] [place] [address], [address]. tel:[phone] [facility], [address] [place] [address] Dr Lozoya 1000[facility] [address], [id number], [place] tel:[phone] CVR - [facility] Encntr for f/u exam aft trtmt for cond oth than malig neoplmChronic venous hypertension w oth comp of l low extrem 3 Tarik RIZZO FACS RVT LINDSAY Saldivar. [address] [place] [address], [place], [address], [place]. tel:[phone] Referring Provider: Macy Rae MD, [address] [place] [address], [address]. tel:[phone] [facility], [address] [place] [address] Dr Lozoya 1000Suite 1000[place], [id number], [place] tel:[phone] CVR - [facility] Spider Veins - (Telangiectasi a) 3 Maame Mosquera . [address] [place] [address], [facility], [place], [id number] , [place]. tel:[phone] Referring Provider: Macy Rae MD, [address] [place] [address], [address]. tel:[phone] [facility], [address] [place] [address] Dr Lozoya 1000Suite [place], [id number], [place] tel:[phone] CVR - [facility] Varicose veins of left lower extremities w ot complications Sep- 3 Tarik RIZZO FACS T RPVI K Yariel. [address] [place] [address], [facility] [place], [address], [place]. tel:[phone] Referring Provider: Macy Rae MD, [address] [place] [address], [address]. tel:[phone] [place] [facility], [address] [place] [address] Dr Lozoya 1000Suite [place], [id number], [place] tel:[phone] CVR - [facility] Varicose veins of left lower extremities w ot complications 3 Tarik RIZZO FACS T RPVI K Yariel. [address] [place] [address], [place], [address], [place]. tel:[phone] Referring Provider: Macy Rae MD, [address] [place] [address], [address]. tel:[phone] [place] [facility], [address] [place] [address] Dr Lozoya 1000[address] 1000[place], [id number], [place] tel:[phone] CVR - [facility] No Information 3 Tarik RIZZO FACS RVT RPVI K Yariel. [address] [place] [address], [facility], [address], [place]. tel:[phone] Referring Provider: Macy Rae MD, [address] [place] [address], [address]. tel:[phone] Offic/outpt E&m Estab 5 Min Trial - Telemedicine [facility], [address] [place] [address] Dr Lozoya 1000[address] 1000[place], [id number], [place] tel:[phone] CVR - [facility] [place] Venous insufficiency (chronic) (peripheral) 3 Tarik Saldivar. [address] [place] [address], [place], [address], . tel:[phone] Referring Provider: Macy Rae MD, [address] [place] [address], [address]. tel:[phone] Office/Outpt E&M Established 15 Mins [facility], [address] [place] [address] Dr Lozoya 1000[address] 1000, [place], [id number], tel:[phone] CV[place] - [place] - [place] Body mass index (BMI) 25.0-25.9, adultVenous insufficiency (chronic) (peripheral) 3 Tarik Saldivar. [address] [place] [address], [place], [address], [place]. tel:[phone] Referring Provider: Macy Rae MD, [address] [place] [address], [address]. tel:[phone] [place] [facility], [address] [place] [address] [facility] 1000[address] 1000[place], [id number], [place] tel:[phone] CVR - [facility] [place] Venous insufficiency (chronic) (peripheral) 3 Tarik Saldivar. [address] [place] [address], [place], [address], [place]. tel:[phone] Referring Provider: Macy Rae MD, [address] [place] [address], [address]. tel:[phone] Family History Family Member Type Diagnosis Age At Onset No Information Payers Payer name Insurance type Covered democrat ID Husam russell(s) [facility] CI [id number] Social History Type Description Quantity Date Captured [...] 26.0-26.9, adult Lifestyle education Related to B chaat mass index (BMI) 26.0-26.9, adult Pre and [...]
[2024-08-31 17:38] LABS: MANUAL DIFF FLAG NO
[2024-08-31 17:55] LABS: Basophils Absolute Auto 0.1 X10*3/uL (0.0-0.2); Basophils Percent Auto 0.5 % (0-2); Eosinophils Percent Auto 0.4 % (0-4); Hematocrit 39.2 % (37.0-47.0); Hemoglobin 13.1 g/dl (12.0-16.0); Imm Gran Abs Auto 0.01 X10*3/uL (0.00-0.03); Imm Gran Pct Auto 0.1 % (0.0-0.4); Lymphocytes Absolute Auto 3.9 X10*3/uL (1.2-4.9); Lymphocytes Percent Auto 42.6 % (20-40); Mean Corpuscular HGB Conc 33.4 g/dl (31.0-35.0); Mean Corpuscular Hemoglobin 26.7 pg (27.0-33.0); Mean Corpuscular Volume 79.8 fL (80.0-98.0); Mean Platelet Volume 9.4 fL (9.4-12.3); Monocytes Absolute Auto 0.6 X10*3/uL (0.1-1.2); Monocytes Percent Auto 6.4 % (2-11); Neutrophils Absolute Auto 4.6 x10*3/uL (2.0-8.3); Platelet Count 260 X10*3/uL (160-400); Red Blood Count 4.91 X10*6/uL (4.20-5.50); Red Cell Distribution Width 12.6 % (11.0-16.0); White Blood Count 9.2 X10*3/uL (4.8-10.8)
[2024-08-31 18:01] LABS: Alanine Aminotransferase 61 U/L (0-31); Albumin Level 4.7 g/dL (3.5-5.0); Alkaline Phosphatase 90 U/L (39-117); Aspartate Amino Transferase 36 U/L (5-31); Bilirubin Direct 0.1 mg/dL (0.0-0.5); Bilirubin Total 0.3 mg/dL (0.0-1.0); Iron 65 mcg/dL (30-160); Percent Iron Saturation 23 % (15-50); Total Iron Binding Capacity 285 mcg/dL (228-428); Total Protein 7.6 g/dL (6.5-8.0); Unsaturated Iron Binding 220 ug/dL
[2024-08-31 18:15] LABS: Ferritin 94 ng/mL (10-250); Gamma Glutamyl Transpeptidase 27 U/L (7-33)
[2024-09-01 07:59] LABS: ~HepC Num1 0.08 S/CO (0.00-0.79); ~Hepatitis C Antibody Nonreactive (Nonreactive)
[2024-09-01 10:06] LABS: Hepatitis A Antibody IgG REACTIVE (Nonreactive); Hepatitis A Antibody IgM 0.37 Index (0-0.79); ~Hepatitis A Antibody IgG 10.95 S/CO (0.00-0.99); ~Hepatitis A Antibody IgM Nonreactive (Nonreactive)
== END 2024-08-31 14:31 | disposition home or self-care (01) ==
LOC: HO.WFDLDS 14:30
PROVIDERS: Visit Provider Physician Assistant
DX: R94.5 Abnormal results of liver function studies (principal); E11.65 Type 2 diabetes mellitus with hyperglycemia; E78.5 Hyperlipidemia, unspecified; R79.89 Other specified abnormal findings of blood chemistry; Z20.2 Contact with and (suspected) exposure to infections with a predominantly sexual mode of transmission
CPT/HCPCS: 36415; 80076; 82728; 82977; 83540; 85025; 86708; 86709; 86803; 99212

== ENCOUNTER 2024-10-04 09:25 | Outpatient (REF) | payer OTHER, SELFPAY ==
--- NOTE | ~2024-10-04 | US_ITS ---
EXAMINATION: US ABDOMEN COMPLETE WITH LIVER ELASTOGRAPHY HISTORY: R79.89 - Other specified abnormal findings of blood chemistry TECHNIQUE: Real-time grayscale ultrasound imaging of the abdomen was performed and images were reviewed. COMPARISON: There are no prior studies available for comparison. FINDINGS: Liver: The right lobe of the liver measures 12.9 cm in size. The left lobe of the liver measures 9.2 cm in size. The liver demonstrates normal homogeneous echotexture. No focal mass or intrahepatic biliary ductal dilatation is identified. There is normal hepatopedal flow in the portal vein. Ultrasound elastography of the liver was performed with 10 separate measurements of the liver parenchyma with the patient in the supine position. Measurements were obtained approximately 2 cm below Kiko's capsule and perpendicular to the capsule. The median shear wave velocity is 1.60 m/s. The interquartile range/median (IQR/median) is 0.09. Gallbladder and biliary tree: There is cholelithiasis. There is no wall thickening or pericholecystic fluid. There is no sonographic Morley sign. The common bile duct is normal in caliber measuring 4 mm. Kidneys: The right kidney measures 11.0 cm in length and is unremarkable. The left kidney measures 10.7 cm in length. There is a 4.0 x 3.6 x 3.9 cm rim calcified cyst in the interpolar region of the left kidney. Pancreas: The pancreatic head, neck, and body are unremarkable. The pancreatic tail is obscured by bowel gas. Spleen: The spleen is normal in size and contour, measuring 7.5 cm in length. Abdominal aorta and inferior vena cava: The visualized portions of the abdominal aorta and inferior vena cava are normal in caliber. There is no free fluid in the abdomen. US/US abdomen comp w elastography IMPRESSION: 1. Cholelithiasis. 2. 4.0 x 3.6 x 3.9 cm rim calcified cyst in the interpolar region of the left kidney. Follow-up is recommended. The median shear wave velocity in the liver is 1.60 m/s, corresponding to a median liver stiffness of 7.95 kPa. The IQR/median value is 0.09. This is indicative of a quality data set. Findings are indicative of a low elastography value which rules out advanced chronic liver disease in asymptomatic patients. REFERENCE: Society of Radiologists in Ultrasound Liver Stiffness Thresholds (2020): LIVER STIFFNESS THRESHOLDS: *Shear wave velocity less than 1.3 m/s (Liver Stiffness equal or less than 5 kPa): High probability of being normal. *Shear wave velocity less than 1.7 m/s (Liver Stiffness less than 9 kPa): In the absence of other known clinical signs, rules out compensated advanced chronic liver disease. *Shear wave velocity between 1.7-2.1 m/s (Liver Stiffness 9-13 kPa): Suggestive of compensated advanced chronic liver disease but need further test for confirmation. *Shear wave velocity between 2.1-2.4 m/s (Liver Stiffness 13-17 kPa): Rules in compensated advanced chronic liver disease. *Shear wave velocity greater than 2.4 m/s (Liver Stiffness over 17 kPa): Suggestive of clinically significant portal hypertension. QUALITY OF DATA SET: *IQR/Median value equal or less than 0.15 implies a quality data set. *IQR/Median value over 0.15 implies a poor quality data set. SIGNIFICANT CHANGE FROM PRIOR EXAM: Significant change if liver stiffness measurement is 10% or greater from prior exam. OTHER CONSIDERATIONS: The stage of liver fibrosis may be overestimated in the setting of acute hepatitis, liver inflammation, elevated liver function tests, hepatic vascular congestion, obstructive cholestasis, non-fasting state, and infiltrative diseases such as amyloidosis and lymphoma. In some patients with NAFLD, the liver stiffness thresholds for compensated advanced chronic liver disease may be lower. In causes other than viral hepatitis and NAFLD, liver stiffness thresholds are not well established. Electronically signed by: Ramírez Booth MD 10/04/2024 11:02 AM EDT
== END 2024-10-04 09:26 | disposition home or self-care (01) ==
LOC: HO.US 09:25
PROVIDERS: PCP Physician Assistant; Visit Provider Physician Assistant
DX: R79.89 Other specified abnormal findings of blood chemistry (principal)
CPT/HCPCS: 76700; 76981

== ENCOUNTER → 2024-10-04 09:29 | Outpatient (BNV) | payer OTHER, SELFPAY | PROVIDERS: PCP Physician Assistant; Visit Provider Radiology Diagnostic Radiology | DX: R79.89 Other specified abnormal findings of blood chemistry (principal) | CPT/HCPCS: 76700; 76981 ==

== ENCOUNTER 2024-10-18 13:52 | Outpatient (AMB) | payer OTHER, SELFPAY ==
--- OUTSIDE RECORDS SUMMARY | 2024-06-08 11:00 | XMS_ITS | Continuity of Care Document ---
Author Organization [facility] Address [address] [place] [address] Phone Care Team Providers Care Record Tabulating Clerk Name Role Phone Henry RIZZO, MITCH, LINDSAY, Ramírez Unavailable U navailable Allergies, Adverse Reactions, Alerts Substance Reaction Status Criticality No Known Allergies Active No Inform ation Medications Medication Instructions Dosage Effective Dates (start - stop) Status Comments Eliquis 2.5 mg tablet take 1 tablet by mouth twice a day starting on day before procedures continue 1 month after - Active amlodipine 5 mg tablet - Active Januvia 100 mg tablet - Active metformin 500 mg tablet - Active atorvastatin 80 mg tablet - Active lisinopril 20 mg tablet - Active pentoxifylline ER 400 mg tablet,extended release - Active triamcinolone acetonide 0.025 % topical cream - Active Procedures Procedure Date Office/Outpt E&M Established 15 Mins- CT & [place] Duplex Scan-extrem Veins; Uni/ CT & [place] F Duplex Scan-extrem Veins; Uni/ CT & [place] J Ultrason Guidan Needle Bx-rad- CT & [place] J Inj Sclerosing Solution; Sngl- CT & [place] J Office/Outpt E&M Established 15 Mins- CT & [place] Duplex Scan-extrem Veins; Uni/ CT & [place] N Office/Outpt E&M Established 15 Mins Nov Duplex Scan-extrem Veins; Uni/ No Charge For Services Varithena, Single Truncal Vein Endovenous Laser, 1st Vein Endovenous laser vein addon Offic/outpt E&m Estab 5 Min Trial - Tele medicine Office/Outpt E&M Established 15 Mins Apr Duplex Scan-extrem Veins; [facility]/ Advance Directives Directive Yes / No Effective Date File Name Other Directive No 06/08/2024 N/A WARNING:The information contained in this section is historical and is provided for information only and does not constitute a legal document or any assurance that the information is still accurate. Please verify the information with the simpson of the legal document before using it for clinical purposes. Encounters Encounter Description Practice Location Reason(s) For Visit Diagnoses Date Provider Providers Copied on Encounter Office/Outpt E&M Established 15 Mins- [facility] & [place] [facility], [address] [place] [address] Dr Lozoya [address] [place], [place] [address], [id number], [place] tel:[phone] [facility] Type 2 diabetes mellitus without complicationsE ssential (primary) hypertensionVe nous insufficiency (chronic) (peripheral)Di sorder of pigmentation, unspecified 5 Henry RIZZO, MITCH, LINDSAY Elmore. [address] [place] [address], [id number] , [place]. tel:[phone] Referring Provider: Macy Rae MD, [address] [place] [address], [address]. tel:[phone] [facility] [facility], [address] [place] [address] Dr Lozoya [address] [address], [id number], [place] tel:[phone] [facility] Chronic venous hypertension (idiopathic) with other complications of left lower extremity 5 Henry RIZZO RVT, LINDSAY Elmore. [address] [place] [address], [place], [place], [id number] , [place]. tel:[phone] Referring Provider: Macy Rae MD, [address] [place] [address], [address]. tel:[phone] [facility], [address] [place] [address] Dr Lozoya [address] [place], [id number], [place] tel:[phone] [facility] Encounter for follow-up examination after completed treatment for conditions other than malignant neoplasmChroni c venous hypertension (idiopathic) with other complications of left lower extremity 5 Henry RIZZO RVT, LINDSAY Elmore. [address] [place] [address], [place], [place], [id number] , [place]. tel:[phone] Referring Provider: Macy Rae MD, [address] [place] [address], [address]. tel:[phone] [place] [facility], [address] [place] [address] Dr Lozoya [address], [id number], [place] tel:[phone] [facility] Varicose veins of left lower extremity with other complications 5 Maame Mosquera . [address] [place] [address], [place], [place], [id number] , [place]. tel:[phone] Referring Provider: Macy Rae MD, [address] [place] [address], [address]. tel:[phone] Office/Outpt E&M Established 15 Mins- CT & [facility], [address] [place] [address] Dr Lozoya [address] l[place], [id number], [place] tel:[phone] [facility] Hereditary lymphedemaType 2 diabetes mellitus without complicationsE ssential (primary) hypertensionLo calized edemaVaricose veins of left lower extremity with painLymphedema , not elsewhere classified 4 Henry RIZZO RVT, LINDSAY Elmore. [address] [place] [address], [place], [place], [id number] , [place]. tel:[phone] Referring Provider: Macy Rae MD, [address] [place] [address], [address]. tel:[phone] [place] [facility], [address] [place] [address] Dr [address], [id number], [place] tel:[phone] [facility] Chronic venous hypertension (idiopathic) with other complications of left lower extremity 4 Henry RIZZO, RVT, LINDSAY Elmore. [address] [place] [address], [place], [place], [id number] , [place]. tel:[phone] Referring Provider: Macy Rae MD, [address] [place] [address], [address]. tel:[phone] Office/Outpt E&M Established 15 Mins [facility], [address] [place] [address] Dr [facility]oz[facility] [address], [id number], [place] tel:[phone] [facility] Chronic venous htn w oth comp of bilateral low extrm 3 Tarik RIZZO FACS RVT LINDSAY Saldivar. [address] [place] [address], [place], [address], [place]. tel:[phone] Referring Provider: Macy Rae MD, [address] [place] [address], [address]. tel:[phone] [facility], [address] [place] [address] Dr Loz[facility], [id number], [place] tel:[phone] [facility] Encntr for f/u exam aft trtmt for cond oth than malig neoplmChronic venous hypertension w oth comp of l low extrem 3 Tarik RIZZO FACS RVT LINDSAY Saldivar. [address] [place] [address], [place], [address], [place]. tel:[phone] Referring Provider: Macy Rae MD, [address] [place] [address], [address]. tel:[phone] [facility], [address] [place] [address] Dr Lozoya [address], [id number], [place] tel:[phone] [facility] Spider Veins - (Telangiectasi a) 3 Maame Mosquera . [address] [place] [address], [facility], [place], [id number] , [place]. tel:[phone] Referring Provider: Macy Rae MD, [address] [place] [address], [address]. tel:[phone] [facility], [address] [place] [address] Dr Lozoya [address] [place], [id number], [place] tel:[phone] [facility] Varicose veins of left lower extremities w ot complications Sep- 3 Tarik RIZZO FACS T RPVI K Yariel. [address] [place] [address], [place], [address], [place]. tel:[phone] Referring Provider: Macy Rae MD, [address] [place] [address], [address]. tel:[phone] [place] [facility], [address] [place] [address] Dr Lozoya [address] [place], [id number], [place] tel:[phone] [facility] Varicose veins of left lower extremities w ot complications 3 Tarik RIZZO FACS T RPVI K Yariel. [address] [place] [address], [place], [address], [place]. tel:[phone] Referring Provider: Macy Rae MD, [address] [place] [address], [address]. tel:[phone] [place] [facility], [address] [place] [address] Dr Lozoya [address], [id number], [place] tel:[phone] [facility] No Information 3 Tarik RIZZO FACS RVT RPVI K Yariel. [address] [place] [address], [place], [address], [place]. tel:[phone] Referring Provider: Macy Rae MD, [address] [place] [address], [address]. tel:[phone] Offic/outpt E&m Estab 5 Min Trial - Telemedicine [facility], [address] [place] [address] Dr Lozoya [address], [id number], [place] tel:[phone] [facility] - [facility] [place] Venous insufficiency (chronic) (peripheral) 3 Tarik Saldivar. [address] [place] [address], [place], [address], . tel:[phone] Referring Provider: Macy Rae MD, [address] [place] [address], [address]. tel:[phone] Office/Outpt E&M Established 15 Mins [facility], [address] [place] [address] Dr Lozoya [address], [place], [id number], tel:[phone] [facility] - [place] [facility] [place] Body mass index (BMI) 25.0-25.9, adultVenous insufficiency (chronic) (peripheral) 3 Tarik Saldivar. [address] [place] [address], [place], [address], [place]. tel:[phone] Referring Provider: Macy Rae MD, [address] [place] [address], [address]. tel:[phone] [place] [facility], [address] [place] [address] [facility] [address], [id number], [place] tel:[phone] [facility] [place] Venous insufficiency (chronic) (peripheral) 3 Tarik Saldivar. [address] [place] [address], [place], [address], [place]. tel:[phone] Referring Provider: Macy Rae MD, [address] [place] [address], [address]. tel:[phone] Family History Family Member Type Diagnosis Age At Onset No Information Payers Payer name Insurance type Covered alliance party ID Husam russell(s) [facility] CI [id number] Social History Type Description Quantity Date Captured Comments Alcohol Use Details Unknown Caffeine Use Details Unknown Tobacco Use Status Current non-smoker Smoking Status Never Smoker Non-Smoking Tobacco Use Details : No Details Available : No Details Available Sex Female Vital Signs Date / Time: Height Weight BMI Pulse Rate Blood Pressure Temperature Respiratory Rate Body Surface Area Head Circumference Head Circ. Percentile Wt./Levon. Percentile BMI percentile Pulse Ox Inhaled Ox 63.050 kg (139.00 lbs) 26.2 8 kg/m eter (2) 130/84 mm[Hg] Chief Complaint And Reason For Visit No Information Reason For Referral Reason For Referral No Information Plan Of Treatment Date Type Action Status Goal Diet education completed Goal Diet education completed Goal Tobacco cessation counseling completed Goal Dietary management education , guidance, and counseling completed Referral Ordered: Weight management: Referral to physician timeframe: 3 Months (related to Body mass index (BMI) 26.0-26.9, adult) ordered Referral Ordered: Weight management: Referral to physician timeframe: 3 Months (related to Body mass index (BMI) 26.0-26.9, adult) ordered History Of Present Illness Encounter Date Complaint History Of Prese nt Illness No Information Functional Status Date Functional Assessmen t No Information Instructions Date Instruction Additional Infor leighaion Pre and post instruc tions reviewed and provided Related to Venous insufficiency (chronic) (peripheral) Lifestyle education Related to B chata mass index (BMI) 26.0-26.9, adult Giving Encouragement to exercise Related to Body mass index (BMI) 26.0-26.9, adult Diet education Related to Body mass index (BMI) 26.0-26.9, adult Diet education Related to Body mass index (BMI) 26.0-26.9, adult Giving Encouragement to exercise Related to Body mass index (BMI) 26.0-26.9, adult Lifestyle education Related to B chata mass index (BMI) 26.0-26.9, adult Pre and post instruc tions reviewed and provided Related to Localized edema Dietary management e ducation, guidance, and counseling Related to Body mass index [BMI] 25.0-25.9, adult Assessments Type Assessment Date No Information Patient Care Teams Name Effective Dates (start - stop) Status Members No Information
--- NOTE | 2024-10-18 08:08 | A.OFFVIS_ITS ---
Vital Signs 10/18/24 14:06 Height 5 ft 1.22 in Weight 134 lb 7.712 oz BMI 25.2 BP 118/80 Blood Pressure Location Rt brachial Position Sitting Pulse 78 Pulse Source Pulse Oximeter Pulse Oximetry (%) 98 Oxygen Delivery Method Room Air Intake Visit Reasons: Type 2 diabetes mellitus with hyperglycemia Intake Note: NEW Patient presents today to establish treatment for Type 2 Diabetes Mellitus: Last Diabetic eye exam was on: Patient had an appt recently and has cataracts Last Podiatry exam was on: Patient does not see a Day Care Assistant Most recent HbA1c: 11.4%, 07/31/2024 Random Glucose- 153 mg/dL, Today Magnet Placer service [id number] utilized for today's visit Magnet Placer Required: Yes Magnet Placer Language: Recreation Instructor Services: Magnet Placer Offered & Declined Accompanied by: Self / Same As Patient Allergies metformin Adverse Reaction (Verified 10/18/24 14:43) Diarrhea HPI Comments Details: [age] YO female who is seen in consultation for T2DM at the request of PCP. Most recent A1C 11.4% at the beginning of august. Her PCP has started her on Trulicity which has been increased once and glipizide has been decreased to once daily. The patient expresses some concern that she has very little appetite. She does not wish to come off Trulicity because she does not want to restart insulin. Type 2 diagnosis was confirmed: 07/31/2024 C-peptide 2.27 Choco <5.0 Negative islet cell antibodies Initially diagnosed with T2DM apprx mid 50's Was initially started on treatment with metformin which caused diarrhea, glipizide She does have a history of cholelithiasis on recent liver elastography. Current regimen: Trulicity 1.5 mg weekly Lantus 10 units She stopped the lantus once she was on trulicity Glipizide 5 mg still taking Does not have meter with her. She checks in the am only: 130's, this am 150's Diabetes in father and 2 siblings. Reports low sugars: none Does not carry sugar source No retinopathy: Has eyes checked yearly, last eye exam DUE cataract ext one eye in [place], has referral for cat ext with local opth Denies neuropathy, no numbness, tingling or pain in feet, last foot exam today, does not see podiatry. does have some tingling in hands No nephropathy, on on jay-I. microalbumin 07/2024 microalbumin 15.0 .2024 eGFR>60 Has HLD, on statin Last LDL 127 as measured on 07/31/2024 Diet: Less hungry since on Trulicity Very late breakfast: scrambled egg with a tortilla supper: eats a late supper sometimes skips, soups, pot, small amt of protein Weight: Down 4 lb since August Has not had diabetes education. She is interested in meeting with a electrical tryout person. [facility] Surgical History Hx of appendectomy Status post phlebectomy Family History Father Diabetes Sister Diabetes Breast cancer Brother Diabetes Sister Breast cancer Lung cancer Family/Other Cancer Social History (Updated 08/02/24 @ 11:50 by Paige Harley CMA) Housing: Apartment Alcohol intake: current Patient Tobacco Use Status: Never used Tobacco e-Cigarette/Vaping Use: Never Used Second Hand Smoke Exposure: No service: No Current occupational status: unemployed Cognitive needs: No Hearing needs: No Vision needs: Yes (glasses) Physical Exam Vital Signs: Last Vital Signs Pulse 78 10/18/24 14:06 BP 118/80 10/18/24 14:06 Pulse Ox 98 10/18/24 14:06 Oxygen Delivery Method Room Air 10/18/24 14:06 BMI result Body Mass Index 25.2 Absence of Cushingoid features. Absence of acromegalic features. Neck exam reveals nl size thyroid about 15 gms. No thyroid nodules palpable. No carotid bruits present. Lungs CTA. Heart S1 S2, Reg R/R. No M/R/ G. Skin exam reveals absence of vitiligo or acanthosis nigricans. Abdominal exam reveals Soft NT/ND with NA BS. No organomegaly present. Const Other: Absence of Cushingoid features. Absence of acromegalic features. Neck exam reveals nl size thyroid about 15 gms. No thyroid nodules palpable. Heart S1 S2, Reg R/R. No M/R G. Skin exam reveals absence of vitiligo or acanthosis nigricans. No edema right leg skin discoloration a prox 2 x 3 in (from previous surgery varicose veins) Visual exam of foot performed. No ulcerations or open lesions. No inter digit maceration or fissuring. No onychomycosis, no callouses. Sensation intact to monofilament exam. Vibratory sensation is normal with 128 Hz tuning fork. Unable to assess capillary refill has nail Faroese on. Pulses positive Neck Other: . Extrem Other: Visual exam of foot performed. No ulcerations or open lesions. No onchomycosis, no callouses.Pulses 2 + distally Sensation intact to monofilament exam. Vibratory sensation sensed is intact with 128 Hz tuning fork Results Reviewed Results Reviewed: Laboratory Last Values Glucose (Clinic) 153 mg/dL (60-115) H 10/18/24 14:13 Assessment & Plan Assessment & Plan (1) Uncontrolled type 2 diabetes mellitus with hyperglycemia: Code(s): E11.65 - Type 2 diabetes mellitus with hyperglycemia Category: Medical Plan: This is a 69-year-old type 2 diabetic who had a extremely elevated A1c beginning of August. She has done well with the addition of Trulicity in his now off insulin and taking glipizide once daily. The patient is concerned because she really does not feel like eating and has poor appetite since starting Trulicity. I explained to her that if she comes off Trulicity most likely we would need to put her back on insulin. I discussed with her the possibility of taking Periactin as needed which is an antihistamine which can stimulate appetite. She would like me to discuss this with her PCP. Her LDL is elevated at 124. She does have mildly elevated liver function tests. She reports she is consistent with her statin. Lipid profile could be assessed in a few months by her PCP. My experience has been that of the diabetes is poorly controlled that this sometimes we will raise the LDL. She has elevated vitamin-D level and does take a supplement daily which is not on her record. She was asked to stop this. She was asked to bring her meter in to all of her medical appointments. I also advised her that glipizide can cause some afternoon lows and that it is important that she carry a sugar source with her and that she have a healthy snack in the early afternoon to prevent this. The patient had an opportunity to ask questions regarding treatment plan. The patient expressed understanding and agreement with the above treatment plan. The patient is aware they should contact our office by phone for worsening glucose readings or for any low blood sugars which may warrant a change in diabetes medication. Compliance is encouraged with medications and any followup testing/consults which may have been ordered. She will be scheduled to see the electrical tryout person and her follow up appointment we will be with the diabetes primary care team in [facility]. Orders: Referrals Human Factors Specialist Nutrition Referral E11.65 - Type 2 diabetes mellitus with hyp erglycemia Patient Instructions: Always carry a source of sugar Check your feet daily looking for any signs of infection, drainage, redness, u lceration and seek medical attention if this occurs. Break in shoes gradually and do not wear open-toed shoes or walk stocking footed or barefooted. The patient was counseled to achieve a target A1C of 7% (154 avg). Fasting blood sugars should be 90-130 in the morning and less than 180 two hours after meals. Reviewed the relationship between poor diabetic control and the development of complications. Coding Level of Care Code New Pt Level 4 (06910) Complex EM visit Add On G2211 Diagnoses Uncontrolled type 2 diabetes mellitus with hyperglycemia E11.65 Time Spent (min) 40 Comment Time spent reviewing labs/provider notes, face to face, chart doc
[2024-10-18 14:06] VITALS: BP 118/80; PULSE 78; O2SAT 98; BMI 25.2
[2024-10-18 14:17] LABS: Glucose, Whole Blood 153 mg/dL (60-115)
== END 2024-10-18 15:03 | disposition home or self-care (01) ==
LOC: HO.ENCR 13:52
PROVIDERS: PCP Physician Assistant; Visit Provider Nurse Practitioner Adult Health
DX: E11.65 Type 2 diabetes mellitus with hyperglycemia (principal)
CPT/HCPCS: 99204; G2211

== ENCOUNTER → 2024-10-18 13:52 | Outpatient (BNVA) | payer OTHER, SELFPAY | PROVIDERS: PCP Physician Assistant; Visit Provider Nurse Practitioner Adult Health | DX: E11.65 Type 2 diabetes mellitus with hyperglycemia (principal) | CPT/HCPCS: 82947; 99202 ==

== ENCOUNTER 2024-11-27 15:09 | Outpatient (AMB) | payer OTHER, SELFPAY ==
[2024-11-27 15:11] VITALS: BP 134/86; PULSE 89; O2SAT 96; BMI 24.8
--- NOTE | 2024-11-27 15:11 | A.OFFVIS_ITS ---
Vital Signs 11/27/24 15:11 Height 5 ft 1.22 in Weight 132 lb 4.438 oz BMI 24.8 BP 134/86 Blood Pressure Location Rt brachial Position Sitting Pulse 89 Pulse Source Pulse Oximeter Pulse Oximetry (%) 96 Oxygen Delivery Method Room Air Intake Visit Reasons: T2DM Intake Note: Patient presents today for a follow-up on Type 2 Diabetes Mellitus: Last Diabetic eye exam was on: Patient had an appt recently and has cataracts Last Podiatry exam was on: Patient does not see a Cash Management Specialist Most recent HbA1c: 8.2%, 11/27/2024 Random Glucose- 112 mg/dL, Today Java Project Manager Required: Yes Java Project Manager Language: Bleach Liquor Maker Services: Java Project Manager Offered & Declined Java Project Manager Name: Daughter Accompanied by: Daughter Allergies metformin Adverse Reaction (Verified 11/27/24 15:18) Diarrhea Medication List - Last Reconciled 11/27/24 by Lorna Correa PA-C atorvastatin 80 mg PO DAILY blood sugar diagnostic (OneTouch Ultra Test strips) Use to test blood sugars BID as directed dulaglutide (Trulicity) 1.5 mg (0.5 mL) subcut QWEEK glipizide ER 5 mg PO DAILY hydrochlorothiazide 25 mg PO DAILY lisinopril 20 mg PO BID pen needle, diabetic Use BID As directed pentoxifylline ER 400 mg PO BID HPI HPI T2DM: Details: Patient is a 69-year-old female presenting today for a follow up. She reports a significant past medical history of hypertension, hyperlipidemia type 2 diabetes, pvd, varicose veins. Daughter helps with translation Endo: Her A1c was 11.4 and today 8.2. C-peptide WNL. Antibodies neg. dx with dm approximately 8-10 years ago around age 60. Currently on glipizide 5 mg daily, Trulicity 1.5 mg weekly -stopped metformin due to GI issues. She says that she does not tolerate any dosage of the metformin. She does notice some appetite suppression with the Trulicity does change this prescription. She states overall she likes it. CV: Blood pressure today in the office is on is 134/86. She is on lisinopril 20 mg bid, hydrochlorothiazide 25 mg daily, pentoxifylline 400 mg bid. compliant with atorvastatin 80 mg nightly. No chest pain, shortness on breath or dizziness. Vasc: followed with Dr. Ramírez Figueroa in Apr for varicose veins. Wears compression stockings regularly. PFSH Surgical History Hx of appendectomy Status post phlebectomy Family History Father Diabetes Sister Diabetes Breast cancer Brother Diabetes Sister Breast cancer Lung cancer Family/Other Cancer Social History (Updated 08/02/24 @ 11:50 by Paige Harley CMA) Housing: Apartment Alcohol intake: current Patient Tobacco Use Status: Never used Tobacco e-Cigarette/Vaping Use: Never Used Second Hand Smoke Exposure: No service: No Current occupational status: unemployed Cognitive needs: No Hearing needs: No Vision needs: Yes (glasses) Physical Exam Vital Signs: BMI result Body Mass Index 24.8 Const Orientation/consciousness: patient oriented x3 HEENT Ears: hearing grossly normal bilaterally Neck Thyroid: Thyroid normal Lymphatic: no lymphadenopathy noted Resp Auscultation: clear to auscultation bilaterally Cardio Rate: regular rate Rhythm: regular rhythm Heart sounds: S1 normal heart sound present and S2 normal heart sound present Skin General skin exam: no rashes or lesions noted Neuro General: patient oriented x3, gait normal and no focal motor deficits Results AMB Hemoglobin A1c AMB Hemoglobin A1c 8.2 % Last Edit by EVER Che on 11/27/24 15:35 Results Reviewed Results Reviewed: Laboratory Tests 07/31/24 08/29/24 10/18/24 07:51 07:45 14:13 Creatinine 0.78 Estimated GFR > 60 Glucose (Clinic) 153 H Hemoglobin A1c % 11.4 H C-Peptide 2.27 Islet Cell Ab Screen NEGATIVE IZAIAH Antibody <5 Assessment & Plan Assessment & Plan (1) Uncontrolled type 2 diabetes mellitus with hyperglycemia: Code(s): E11.65 - Type 2 diabetes mellitus with hyperglycemia Category: Medical Plan: will increase trulicity to 3 mg - she will let me know if too much appetite suppression continue glipizide will recheck labs in 3 months f/u at that time or sooner prn (2) HTN (hypertension): Code(s): I10 - Essential (primary) hypertension Category: Medical Plan: Continue current regimen (3) Hyperlipidemia: Code(s): E78.5 - Hyperlipidemia, unspecified Category: Medical Plan: Continue atorvastatin. Orders: Orders Comprehensive [place]. Panel Fast Today E11.65 - Type 2 diabetes mellitus with hyperglycemia, E78.5 - Hyperlipidemia, unspecified, I10 - Essential (primary) hypertension Lipid Panel Today E11.65 - Type 2 diabetes mellitus with hyperglycemia, E78.5 - Hyperlipidemia, unspecified, I10 - Essential (primary) hypertension AMB Hemoglobin A1c Today E11.65 - Type 2 diabetes mellitus with hyperglycemia Hemoglobin A1c Today E11.65 - Type 2 diabetes mellitus with hyperglycemia, E78.5 - Hyperlipidemia, unspecified, I10 - Essential (primary) hypertension, R73.01 - Impaired fasting glucose Microalbumin, Random (w Creat) Today E11.65 - Type 2 diabetes mellitus with hyperglycemia, E78.5 - Hyperlipidemia, unspecified, I10 - Essential (primary) hypertension Referrals Nurse Navigator Referral Z59.82 - Transportation insecurity Medications: New dulaglutide (Trulicity) 3 mg (0.5 mL) subcut QWEEK 2 mL 4RF lancets (OneTouch UltraSoft 2 Lancet) use daily As directed to monitor blood sug ars 100 ea 2RF Refilled blood sugar diagnostic (OneTouch Ultra Test strips) Use to test blood sugars BID as directed 100 ea 3RF E11.65 - Type 2 diabetes mellitus with hyperglycemia Discontinued dulaglutide (Trulicity) Discontinued Reason: Doctor's Order 1.5 mg (0.5 mL) subcut QWEEK 2 mL 3RF Coding Level of Care Code Est Pt Level 4 (31282) Complex EM visit Add On G2211 Diagnoses Uncontrolled type 2 diabetes mellitus with hyperglycemia E11.65 HTN (hypertension) I10 Hyperlipidemia E78.5
--- OUTSIDE RECORDS SUMMARY | 2024-11-27 15:12 | XMS_ITS ---
Author Name [facility] Organization Unknown Care Team Organization Name Specialty Phone Email Start Date End Da te [facility] Termed, PROVIDER Primary Care 03/03/202211/24
[2024-11-27 15:19] LABS: Glucose, Whole Blood 122 mg/dL (60-115)
== END 2024-11-27 15:37 | disposition home or self-care (01) ==
LOC: HO.ENCR 15:09
PROVIDERS: PCP Physician Assistant; Visit Provider Physician Assistant
DX: E11.65 Type 2 diabetes mellitus with hyperglycemia (principal); I10 Essential (primary) hypertension; E78.5 Hyperlipidemia, unspecified

== ENCOUNTER → 2024-11-27 15:09 | Outpatient (BNVA) | payer OTHER, SELFPAY | PROVIDERS: PCP Physician Assistant; Visit Provider Physician Assistant | DX: E11.65 Type 2 diabetes mellitus with hyperglycemia (principal); E11.51 Type 2 diabetes mellitus with diabetic peripheral angiopathy without gangrene; I10 Essential (primary) hypertension; E78.5 Hyperlipidemia, unspecified; Z79.899 Other long term (current) drug therapy; Z59.82 Transportation insecurity | CPT/HCPCS: 82947; 83036; 99212 ==

== ENCOUNTER 2024-11-28 08:06 | Outpatient (REF) | payer OTHER, SELFPAY ==
--- NOTE | ~2024-11-28 | MM_ITS ---
EXAMINATION: DXA BONE DENSITY AXIAL HISTORY: M85.80 - Other specified disorders of bone density and structure, unspecified... TECHNIQUE: [place] Dual energy absorptiometry (DEXA) of the lumbar spine, total left hip, and femoral neck was performed. COMPARISON: There are no prior studies for comparison. FINDINGS: The bone mineral density of the lumbar spine is 1.037 g/cm2, corresponding to a T-score of -1.1, and a Z-score of 0.7. This is indicative of osteopenia. The bone mineral density of the left total hip is 0.728 g/cm2, corresponding to a T-score of -2.2, and a Z-score of -0.7. This is indicative of osteopenia. The bone mineral density of the left femoral neck is 0.669 g/cm2, corresponding to a T-score of -2.7, and a Z-score of -0.9. This is indicative of osteoporosis. FRACTURE RISK: The FRAX index suggests a risk of major osteoporotic fracture of 9.0%, and of hip fracture 2.4%. MM/XR DEXA axial skeleton IMPRESSION: Based on bone mineral density, and according to World Health Organization (WHO) criteria, the diagnosis is consistent with osteoporosis. Statistically, 68% of repeat scans fall within 1 SD (+/- 0.010 g/cm2 for AP spine L1-L4) and 1 SD (+/- 0.012 g/cm2 for femur total) FRAX is a trademark of the [employer] [place] for Metabolic Bone Disease, a World Health Organization (WHO) Collaborating Center. Electronically signed by: Ramírez Booth MD 11/28/2024 08:45 AM EDT
== END 2024-11-28 08:07 | disposition home or self-care (01) ==
LOC: HO.MAMMO 08:06
PROVIDERS: PCP Physician Assistant; Visit Provider Physician Assistant
DX: Z13.820 Encounter for screening for osteoporosis (principal); M85.89 Other specified disorders of bone density and structure, multiple sites
CPT/HCPCS: 77080

== ENCOUNTER → 2024-11-28 08:15 | Outpatient (BNV) | payer OTHER, SELFPAY | PROVIDERS: PCP Physician Assistant; Visit Provider Radiology Diagnostic Radiology | DX: E28.39 Other primary ovarian failure (principal) | CPT/HCPCS: 77080 ==

== ENCOUNTER 2024-12-01 07:44 | Outpatient (REF) | payer OTHER, SELFPAY ==
[2024-12-01 12:05] LABS: Microalbum/Creatinine Ratio Ur 9.5 ug/mg cr (<30)
[2024-12-01 12:07] LABS: Hemoglobin A1C 223.2794 umol/L; Total Hemoglobin (HGBA1C) 3474.4344 umol/L
[2024-12-01 12:12] LABS: Alanine Aminotransferase 50 U/L (0-31); Albumin Level 4.9 g/dL (3.5-5.0); Alkaline Phosphatase 97 U/L (39-117); Anion Gap 11 (12-20); Aspartate Amino Transferase 31 U/L (5-31); Blood Urea Nitrogen 17 mg/dL (9-16); Calcium 10.0 mg/dL (8.4-10.2); Carbon Dioxide 31 mmol/L (22-29); Chloride 104 mmol/L (96-108); Cholesterol 169 mg/dL (<200); Estimated Glomerular Filt Rate > 60; HDL Cholesterol 47 mg/dL (>40); Potassium 4.1 mmol/L (3.3-5.1); Sodium 142 mmol/L (135-145); Total Protein 7.6 g/dL (6.5-8.0); Triglycerides 73 mg/dL (<150)
== END 2024-12-01 07:45 | disposition home or self-care (01) ==
LOC: HO.WFDLDS 07:44
PROVIDERS: Visit Provider Physician Assistant
DX: E11.65 Type 2 diabetes mellitus with hyperglycemia (principal); I10 Essential (primary) hypertension; E78.5 Hyperlipidemia, unspecified
CPT/HCPCS: 36415; 80053; 80061; 82043; 82570; 83036

== ENCOUNTER 2024-12-06 08:37 | Outpatient (AMB) | payer OTHER, SELFPAY ==
--- NOTE | 2024-12-06 08:42 | A.OFFVIS_ITS ---
Vital Signs 12/06/24 08:43 Weight 132 lb 6 oz BP 122/64 Blood Pressure Location Rt brachial Position Sitting Intake Visit Reasons: dm Allergies metformin Adverse Reaction (Verified 11/27/24 15:18) Diarrhea Medication List - Last Reconciled 12/06/24 by Lorna Correa PA-C atorvastatin 80 mg PO DAILY blood sugar diagnostic (Interactive InvestorTouch Ultra Test strips) Use to test blood sugars BID as directed dulaglutide (Trulicity) 3 mg (0.5 mL) subcut QWEEK glipizide ER 5 mg PO DAILY hydrochlorothiazide 25 mg PO DAILY lancets (Interactive InvestorTouch UltraSoft 2 Lancet) use daily As directed to monitor blood sugars lisinopril 20 mg PO BID pen needle, diabetic Use BID As directed pentoxifylline ER 400 mg PO BID HPI HPI dm: Details: Patient is a 69-year-old female presenting today for a follow up. She reports a significant past medical history of hypertension, hyperlipidemia type 2 diabetes, pvd, varicose veins. Daughter helps with translation Endo: Her A1c was 11.4 and most recently it is 8. C-peptide WNL. Antibodies neg. dx with dm approximately 8-10 years ago around age 60. Currently on glipizide 5 mg daily, Trulicity 1.5 mg weekly. At our last visit I did increase the Trulicity to 3 mg. She has not yet started this medication. -stopped metformin due to GI issues. She says that she does not tolerate any dosage of the metformin. She does notice some appetite suppression with the Trulicity does change this prescription. She states overall she likes it. CV: Blood pressure today in the office is on is 122/64. She is on lisinopril 20 mg bid, hydrochlorothiazide 25 mg daily, pentoxifylline 400 mg bid. compliant with atorvastatin 80 mg nightly. No chest pain, shortness on breath or dizziness. Vasc: followed with Dr. Ramírez Figueroa in Apr for varicose veins. Wears compression stockings regularly. GI: Was noted to have elevated LFTs. LFTs are improving. She did have an abdominal ultrasound which was consistent with gallstones and a calcified left renal cyst. She is asymptomatic. Denies any abdominal pain or discomfort. Mammo: Completed at [facility] 07/2024 and needs to have a repeat 6 month scan in January Pap: UTD 2022, scheduled for today Bone density: Recent bone density consistent with osteoporosis. She does take calcium but not vitamin-D. Colonoscopy: never had, would do cologuard-ordered at last visit [facility] Surgical History Hx of appendectomy Status post phlebectomy Family History Father Diabetes Sister Diabetes Breast cancer Brother Diabetes Sister Breast cancer Lung cancer Family/Other Cancer Social History Housing: Apartment Alcohol intake: current Patient Tobacco Use Status: Never used Tobacco e-Cigarette/Vaping Use: Never Used Second Hand Smoke Exposure: No service: No Current occupational status: unemployed Cognitive needs: No Hearing needs: No Vision needs: Yes (glasses) Physical Exam Const Orientation/consciousness: patient oriented x3 HEENT Ears: hearing grossly normal bilaterally Neck Thyroid: Thyroid normal Lymphatic: no lymphadenopathy noted Resp Auscultation: clear to auscultation bilaterally Cardio Rate: regular rate Rhythm: regular rhythm Heart sounds: S1 normal heart sound present and S2 normal heart sound present GI Inspection: Yes normal to inspection Palpation (GI): Soft to palpation and Other GI palpation findings present (nontender, no cva tenderness) Auscultation: normoactive bowel sounds Rectal Exam - Female: deferred Skin General skin exam: no rashes or lesions noted Neuro General: patient oriented x3, gait normal and no focal motor deficits Results Reviewed Results Reviewed: Laboratory Tests 08/31/24 11/27/24 12/01/24 14:31 15:19 07:47 WBC 9.2 RBC 4.91 Hgb 13.1 Hct 39.2 Plt Count 260 Creatinine 0.69 Estimated GFR > 60 Fasting Glucose 149 H Hgb A1c (Clinic) 8.2 H Hemoglobin A1c % 8.0 H AST 31 ALT 50 H Alkaline Phosphatase 97 Triglycerides 73 Cholesterol 169 LDL Cholesterol, Calc 108 H HDL Cholesterol 47 US/US abdomen comp w elastography IMPRESSION: 1. Cholelithiasis. 2. 4.0 x 3.6 x 3.9 cm rim calcified cyst in the interpolar region of the left kidney. Follow-up is recommended. Assessment & Plan Assessment & Plan (1) Osteoporosis: Code(s): M81.0 - Age-related osteoporosis without current pathological fracture Category: Medical Plan: We will start Fosamax. States that she gets plenty of calcium in her diet. We will add vitamin-D. We will monitor this. We discussed risks and benefits and adverse effects of this medication. (2) Gallstones: Code(s): K80.20 - Calculus of gallbladder without cholecystitis without obstruction Category: Medical Plan: She is asymptomatic. We reviewed signs and symptoms of gallstones that would require emergent medical treatment. (3) Cyst of left kidney: Code(s): N28.1 - Cyst of kidney, acquired Category: Medical Plan: I have referred her to Urology CT ordered Labs ordered (4) Uncontrolled type 2 diabetes mellitus with hyperglycemia: Code(s): E11.65 - Type 2 diabetes mellitus with hyperglycemia Category: Medical Plan: Advised to increase the Trulicity as previously directed. She will let me know if she develops any weight loss or low blood sugars. She will continue with the glipizide. (5) Hyperlipidemia: Code(s): E78.5 - Hyperlipidemia, unspecified Category: Medical Plan: Continue atorvastatin 80 mg. (6) HTN (hypertension): Code(s): I10 - Essential (primary) hypertension Category: Medical Plan: WNL today. Continue current regimen (7) Abnormality of right breast on screening mammogram: Code(s): R92.8 - Other abnormal and inconclusive findings on diagnostic imaging of breast Category: Medical Plan: Has scan ordered for next month Orders: Orders CT abdomen pelvis w IV con Today N28.1 - Cyst of kidney, acquired Complete Blood Count Auto Diff Today K80.20 - Calculus of gallbladder without cholecystitis without obstruction, M81.0 - Age-related osteoporosis without current pathological fracture, N28.1 - Cyst of kidney, acquired UA CC w/rflx Micro + Cult Today K80.20 - Calculus of gallbladder without cholecystitis without obstruction, M81.0 - Age-related osteoporosis without current pathological fracture, N28.1 - Cyst of kidney, acquired, Z13.220 - Encounter for screening for lipoid disorders Comprehensive [place]. Panel Fast Today K80.20 - Calculus of gallbladder without cholecystitis without obstruction, M81.0 - Age-related osteoporosis without current pathological fracture, N28.1 - Cyst of kidney, acquired Hemoglobin A1c Today K80.20 - Calculus of gallbladder without cholecystitis without obstruction, M81.0 - Age-related osteoporosis without current pathological fracture, N28.1 - Cyst of kidney, acquired, R73.01 - Impaired fasting glucose TSH reflex Free T4 Today K80.20 - Calculus of gallbladder without cholecystitis without obstruction, M81.0 - Age-related osteoporosis without current pathological fracture, N28.1 - Cyst of kidney, acquired Referrals Urology Referral N28.1 - Cyst of kidney, acquired Medications: New cholecalciferol (vitamin D3) 25 mcg PO DAILY 90 caps 3RF alendronate (Fosamax) 70 mg PO QWEEK 13 tabs 3RF 3 months Coding Level of Care Code Est Pt Level 4 (74483) Complex EM visit Add On G2211 Diagnoses Osteoporosis M81.0 Gallstones K80.20 Cyst of left kidney N28.1 Uncontrolled type 2 diabetes mellitus with hyperglycemia E11.65 Hyperlipidemia E78.5 HTN (hypertension) I10 Abnormality of right breast on screening mammogram R92.8
[2024-12-06 08:43] VITALS: BP 122/64
== END 2024-12-06 09:14 | disposition home or self-care (01) ==
LOC: HO.HMCFM 08:38
PROVIDERS: PCP Physician Assistant; Visit Provider Physician Assistant
DX: M81.0 Age-related osteoporosis without current pathological fracture (principal); K80.20 Calculus of gallbladder without cholecystitis without obstruction; N28.1 Cyst of kidney, acquired; E11.65 Type 2 diabetes mellitus with hyperglycemia; E78.5 Hyperlipidemia, unspecified; I10 Essential (primary) hypertension; R92.8 Other abnormal and inconclusive findings on diagnostic imaging of breast

== ENCOUNTER → 2024-12-06 08:37 | Outpatient (BNVA) | payer OTHER, SELFPAY | PROVIDERS: PCP Physician Assistant; Visit Provider Physician Assistant | DX: M81.0 Age-related osteoporosis without current pathological fracture (principal); N28.1 Cyst of kidney, acquired; E11.65 Type 2 diabetes mellitus with hyperglycemia; E78.5 Hyperlipidemia, unspecified; I10 Essential (primary) hypertension; R92.8 Other abnormal and inconclusive findings on diagnostic imaging of breast; K80.21 Calculus of gallbladder without cholecystitis with obstruction | CPT/HCPCS: 99212 ==

== ENCOUNTER 2025-01-31 10:20 | Outpatient (AMB) | payer OTHER, SELFPAY ==
--- NOTE | 2025-01-31 10:25 | MHC.PC.OV ---
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 yi Accompanied by: Daughter Allergies metformin Adverse Reaction (Verified 01/31/25 10:28) Diarrhea Medication List - Last Reconciled 01/31/25 by Lorna Correa PA-C alendronate (Fosamax) 70 mg PO QWEEK 3 months atorvastatin 80 mg PO DAILY blood sugar diagnostic (BitAnimateuch Ultra Test strips) Use to test blood sugars BID as directed cholecalciferol (vitamin D3) 25 mcg PO DAILY dulaglutide (Trulicity) 3 mg (0.5 mL) subcut QWEEK glipizide ER 5 mg PO DAILY hydrochlorothiazide 25 mg PO DAILY lancets (BitAnimateuch UltraSoft 2 Lancet) use daily As directed to monitor blood sugars lisinopril 20 mg PO BID [pen needle use twice daily to check blood glucose] pen needle, diabetic Use BID As directed [pen needles test blood glucise twice daily] pentoxifylline ER 400 mg PO BID Tobacco use date assessed: 01/31/25 Fall risk assessment: No Falls in past year Last assessed Fall Risk: 01/31/25 Dental Screening Dental Screen Date: 07/26/24 [facility] feb 07 surgery HPI Details Patient is a 69-year-old female presenting today for a preop. She reports a significant past medical history of hypertension, hyperlipidemia type 2 diabetes, pvd, varicose veins. Daughter helps with translation She is scheduled for cataract surgery on 02/07. She denies any recent illnesses. No chest pain or shortness on breath. Overall feels well in his excited to get this done. Endo: Her A1c is 7.7 to C-peptide WNL. Antibodies neg. dx with dm approximately 8-10 years ago around age 60. Currently on glipizide 5 mg daily, Trulicity 3 mg weekly. -stopped metformin due to GI issues. She says that she does not tolerate any dosage of the metformin. She does notice some appetite suppression with the Trulicity does change this prescription. CV: Blood pressure today in the office is on is 128/72. She is on lisinopril 20 mg bid, hydrochlorothiazide 25 mg daily, pentoxifylline 400 mg bid. compliant with atorvastatin 80 mg nightly. No chest pain, shortness on breath or dizziness. Vasc: followed with Dr. Ramírez Figueroa in Apr for varicose veins. Wears compression stockings regularly. GI: Was noted to have elevated LFTs. LFTs are improving. She did have an abdominal ultrasound which was consistent with gallstones and a calcified left renal cyst. She is asymptomatic. Denies any abdominal pain or discomfort. Mammo: Completed at [facility] 07/2024 and needs to have a repeat 6 month scan in January and states she is scheduled Pap: UTD 2024 Bone density: Recent bone density consistent with osteoporosis. She was started on Fosamax. Colonoscopy: never had, would do cologuard-ordered at last visit [facility] Surgical History Hx of appendectomy Status post phlebectomy Family History Father Diabetes Sister Diabetes Breast cancer Brother Diabetes Sister Breast cancer Lung cancer Family/Other Cancer Social History (Updated 01/31/25 @ 10:45 by Paige Harley CMA) Housing: Apartment Alcohol intake: current Patient Tobacco Use Status: Never used Tobacco e-Cigarette/Vaping Use: Never Used Second Hand Smoke Exposure: No Use of substances other than those prescribed or required for medical reasons: No service: No Current occupational status: unemployed Cognitive needs: No Hearing needs: No Vision needs: Yes (glasses) Questionnaire AUDIT C Alcohol Use Questionnaire (AUDIT-C) 1. How often do you have a drink containing alcohol?: Never 3. How often do you have six or more drinks on one occasion?: Never Total Score: 0 Physical exam (Primary Care) Vital Signs: Last Vital Signs Temp 97.9 F 01/31/25 10:29 Pulse 81 01/31/25 10:29 Resp 14 01/31/25 10:29 BP 128/72 01/31/25 10:29 Pulse Ox 98 01/31/25 10:29 Oxygen Delivery Method Room Air 01/31/25 10:29 BMI result Body Mass Index 24.5 Tobacco/Smoking Status: Tobacco use Status Tobacco use date assessed 01/31/25 01/31/25 10:33 Patient Tobacco Use Status Never used Tobacco 01/31/25 10:45 e-Cigarette/Vaping Use Never Used 01/31/25 10:45 Const Orientation/consciousness: patient oriented x3 HENMT Ears: hearing grossly normal bilaterally Neck Thyroid: Thyroid normal Lymphatic: no lymphadenopathy noted Resp Auscultation: clear to auscultation bilaterally Cardio Rate: regular rate Rhythm: regular rhythm Heart sounds: S1 normal heart sound present and S2 normal heart sound present GI Inspection: Yes normal to inspection Palpation (GI): Soft to palpation and Other GI palpation findings present (nontender, no cva tenderness) Auscultation: normoactive bowel sounds Rectal Exam - Female: deferred Skin General skin exam: no rashes or lesions noted Neuro General: patient oriented x3, gait normal and no focal motor deficits Office Procedures EKG Details: EKG today in office is normal sinus rhythm. EKG interpreted myself and Dr. Benedict. EKG will be faxed [id number], Complete Results AMB Hemoglobin A1c AMB Hemoglobin A1c 7.7 % Last Edit by Paige Harley CMA on 01/31/25 10:51 Results Reviewed Results Reviewed: Laboratory Last Values Hgb A1c (Clinic) 7.7 % (4.0-6.0) H 01/31/25 10:44 Coding Level of Care Code Est Pt Level 4 (26255) Complex EM visit Add On G2211 Diagnoses Pre-op evaluation Z01.818 HTN (hypertension) I10 Uncontrolled type 2 diabetes mellitus with hyperglycemia E11.65 CPT Codes EKG - CPT: 64837-[id number], Complete ([id number]) Assessment & Plan Assessment & Plan (1) Pre-op evaluation: Code(s): Z01.818 - Encounter for other preprocedural examination Plan: Patient is cleared for cataract surgery on 02/07. She is low risk for this low risk procedure. (2) HTN (hypertension): Code(s): I10 - Essential (primary) hypertension Category: Medical Plan: WNL. Continue current regimen (3) Uncontrolled type 2 diabetes mellitus with hyperglycemia: Code(s): E11.65 - Type 2 diabetes mellitus with hyperglycemia Category: Medical Plan: Improved. Reminded to hold Trulicity 1 week prior to cataract surgery. Orders: Orders AMB Hemoglobin A1c 01/31/25 E11.65 - Type 2 diabetes mellitus with hyperglycemia, Z01.818 - Encounter for other preprocedural examination
[2025-01-31 10:29] VITALS: BP 128/72; PULSE 81; RESP 14; TEMP 36.6; O2SAT 98; BMI 24.5
== END 2025-01-31 12:22 | disposition home or self-care (01) ==
LOC: HO.HMCFM 10:20
PROVIDERS: PCP Physician Assistant; Visit Provider Physician Assistant
DX: Z01.818 Encounter for other preprocedural examination (principal); I10 Essential (primary) hypertension; E11.65 Type 2 diabetes mellitus with hyperglycemia

== ENCOUNTER → 2025-01-31 10:20 | Outpatient (BNVA) | payer OTHER, SELFPAY | PROVIDERS: PCP Physician Assistant; Visit Provider Physician Assistant | DX: Z01.818 Encounter for other preprocedural examination (principal); H26.9 Unspecified cataract; I10 Essential (primary) hypertension; E11.65 Type 2 diabetes mellitus with hyperglycemia | CPT/HCPCS: 83036; 93005; 99212 ==